=== PATIENT | male | born 1955 | race Caucasian/White ===

== ENCOUNTER 2019-09-16 12:36 | Observation (INO) | payer BC, OTHER ==
[2019-09-16] MEDS ORDERED: THIAMINE 200 MG/2 ML INJ ONE (13:48)
[2019-09-16] MEDS ORDERED: FAMOTIDINE 20 MG/2 ML VIAL IV ONE (13:49)
[2019-09-16] MEDS ORDERED: NA CHLORIDE 0.9% 100 ML IV ONE (13:49)
[2019-09-16] MEDS ORDERED: NA CHLORIDE 0.9% 1,000 ML ONE (13:50)
[2019-09-16] MEDS ORDERED: FOLIC ACID 5 MG/ML VIAL ONE (13:50)
[2019-09-16] MEDS ORDERED: LACTULOSE 20 GM/30 ML UCUP ONE (13:50)
--- NOTE | 2019-09-16 14:27 | RAD REPORT ---
EXAM DESCRIPTION: CT - Head Brain Wo Cont - 09/16/2019 2:20 pm CLINICAL HISTORY: Dizziness;Confused Headache, drowsiness COMPARISON: HEAD BRAIN W O CONTRAST dated 11/23/2007 TECHNIQUE: All CT scans are performed using dose optimization technique as appropriate and may inclu de automated exposure control or mA/KV adjustment according to patient size. FINDINGS: No intracranial hemorrhage, hydrocephalus or extra-axial fluid collection.No areas of brai n edema or evidence of midline shift. The paranasal sinuses and mastoids are clear. The calvarium is intact. IMPRESSION: No acute intracranial abnormality.
--- NOTE | 2019-09-16 14:28 | RAD REPORT ---
EXAM DESCRIPTION: US - Extrem Venous W Compress Tank - 09/16/2019 2:11 pm CLINICAL HISTORY: Pain;Swelling Bilateral leg edema and swelling. COMPARISON: EXT VENOUS W COMPRESSION TANK dated 04/24/2013 TECHNIQUE: Real-time sonographic interrogation of the left and right lower extremity deep venous sys tems was performed. FINDINGS: Normal compressibility, flow augmentation, phasic flow and spontaneous flow is identified in both the left and right lower extremity deep venous systems. IMPRESSION: No sonographic evidence of left or right lower extremity deep venous thrombosis.
--- NOTE | 2019-09-16 14:31 | RAD REPORT ---
EXAM DESCRIPTION: RAD - Chest Single View - 09/16/2019 2:25 pm CLINICAL HISTORY: Cough;Dyspnea;SOB Chest pain. COMPARISON: Chest Pa And Lat (2 Views) dated 06/08/2017; CHEST PA AND LAT 2 VIEW dated 04/01/2010 FINDINGS: Portable technique limits examination quality. The lungs are grossly clear. The heart is normal in size. Mildly tortuous thoracic aorta. No displace d fractures. IMPRESSION: No acute intrathoracic process suspected.
[2019-09-16 14:51] LABS: Absolute Lymphocytes (CBC) 1.1 K/uL (0.7-4.9); Basophils % 1.4 % (0-1.3); Hematocrit 40.5 % (39.6-49.0); Lymphocytes % 25.9 % (15.3-44.8); MPV 8.9 fL (7.6-11.3); RBC Red Blood Cell Count 4.19 M/uL (4.33-5.43)
[2019-09-16 14:59] LABS: Protime INR 1.2
[2019-09-16 15:09] LABS: ALT/SGPT 23 U/L (12-78); AST/SGOT 40 U/L (15-37); Albumin 3.5 g/dL (3.4-5.0); Alkaline Phosphatase 180 U/L (45-117); BUN Blood Urea Nitrogen 21 mg/dL (7-18); Bicarbonate 21 mmol/L (21-32); Bilirubin Direct 1.3 mg/dL (0-0.2); Bilirubin Total 3.1 mg/dL (0.2-1.0); Glucose Level 103 mg/dL (74-106); Lipase 448 U/L (73-393); Magnesium 2.2 mg/dL (1.8-2.4); NT PRO-BNP 248 pg/mL (<125); Potassium 4.4 mmol/L (3.5-5.1); Protein, Total 8.7 g/dL (6.4-8.2); Sodium Level 139 mmol/L (136-145); Troponin (Emerg Dept Use Only) < 0.02 ng/mL (0.0-0.045)
--- NOTE | 2019-09-16 15:34 | ER ---
Nurse's Notes [facility] Name: Marino Yielding Age: 64 yrs Sex: Male : 1955 Arrival Date: 09/16/2019 Time: 12:41 Bed 6 Private MD: Diagnosis: Altered mental status, unspecified;Edema, unspecified;Unspecified cirrhosis of liver;Dyspnea;Obesity, unspecified Presentation: 09/16 12:48 Presenting complaint: Friend states: "Over the last month, he has been very confused. ss it's getting worse and he hasn't slept in the past 3 nights. He has to sleep in his recliner. He said he has some shakes, and at times he says he has blurred vision and severe depression.". Transition of care: patient was not received from another setting of care. Onset of symptoms is unknown. Risk Assessment: Do you want to hurt yourself or someone else? Patient reports no desire to harm self or others. Initial Sepsis Screen: Does the patient meet any 2 criteria? RR > 20 per min. HR > 90 bpm. Does the patient have a suspected source of infection? No. Patient's initial sepsis screen is negative. Care prior to arrival: None. 12:48 Method Of Arrival: Ambulatory ss 12:48 Acuity: OLENA 2 ss Triage Assessment: 13:00 General: Appears in no apparent distress. comfortable, obese, Behavior is cooperative, bp anxious. Pain: Denies pain. EENT: No deficits noted. Neuro: Level of Consciousness is awake, alert, confused, Oriented to person, place. Cardiovascular: No deficits noted. Respiratory: Reports shortness of breath Onset: The symptoms/episode began/occurred at an unknown time. the patient has mild shortness of breath. GI: No signs and/or symptoms were reported involving the gastrointestinal system. : No signs and/or symptoms were reported regarding the genitourinary system. Derm: No deficits noted. Musculoskeletal: Swelling present in left leg and right leg. Historical: - Allergies: 12:54 Codeine; ss - Home Meds: 12:54 gabapentin 100 mg oral cap 3 times per day [Active]; lisinopril 40 mg Oral tab 1 tab ss once daily [Active]; furosemide 40 mg Oral tab 1 tab once daily [Active]; Vimovo 500-20 mg oral TbID 1 tab 2 times per day [Active]; hydrocodone [Active]; - PMHx: 12:54 Hypertension; CHF; lymphedema; Cirrhosis; ss - PSHx: 12:54 unknown testicular surgery; Knee surgery; ss - Immunization history:: Adult Immunizations unknown, Flu vaccine is up to date. - Social history:: Smoking status: Patient uses tobacco products, smokes one pack cigarettes per day. - Ebola Screening: : Patient denies exposure to infectious person Patient denies travel to an Ebola-affected area in the 21 days before illness onset. - Family history:: not pertinent. Screenin:24 Abuse screen: Denies threats or abuse. Denies injuries from another. Nutritional bp screening: No deficits noted. Tuberculosis screening: No symptoms or risk factors identified. Fall Risk None identified. Assessment: 13:00 General: SEE TRIAGE NOTE. bp 14:00 Reassessment: PT RETURNED FROM CT. bp 14:30 Cardiovascular: Rhythm is sinus rhythm. Respiratory: Airway is patent Respiratory bp effort is even, labored, Breath sounds are coarse bilaterally. 15:51 Reassessment: PT INCREASINGLY ANXIOUS, REFUSING TO STAY IN BED OR ALLOW VS MONITORING. bp MD INFORMED. 17:00 Reassessment: PT SEEN BY WOUND CARE PER ADMIT MD. ADMIT IN PROCESS. bp 17:24 Reassessment: ADMIT COMPLETE, ROOM ASSIGNED. bp 17:50 Reassessment: REPORT TO ANA LUISA MULLEN FOR 203. bp Vital Signs: 12:54 BP 138 / 68; Pulse 91; Resp 22; Temp 98.4(TE); Pulse Ox 91% on R/A; Weight 136.08 kg; ss Height 5 ft. 9 in. (175.26 cm); Pain 0/10; 13:07 Pulse 86; Pulse Ox 96% on R/A; ss 14:00 BP 130 / 57; Pulse 76; Resp 16; Pulse Ox 97% ; bp 14:48 BP 123 / 70; Pulse 80; Resp 17; Pulse Ox 98% ; bp 15:51 bp 17:30 BP 127 / 65; Pulse 79; Resp 16; Temp 98.5; Pulse Ox 97% ; bp 12:54 Body Mass Index 44.30 (136.08 kg, 175.26 cm) ss 15:51 PT REFUSED bp ED Course: 12:41 Patient arrived in ED. mr 12:50 Triage completed. ss 12:54 Arm band placed on left wrist. ss 13:20 Alberto Mccoy MD is Attending Physician. denita 13:24 Kendell Diane, PAZ is Primary Nurse. bp 13:24 Patient has correct armband on for positive identification. Bed in low position. Call bp light in reach. Side rails up X2. Adult w/ patient. 14:11 US Extremity Venous W Compression Tank In Process Unspecified. EDMS 14:21 CT Head Brain wo Cont In Process Unspecified. EDMS 14:26 XRAY Chest (1 view) In Process Unspecified. EDMS 14:30 Inserted saline lock: 20 gauge in right hand, using aseptic technique. Blood collected. bp 15:24 Hosea Colmenares MD is Hospitalizing Provider. denita 15:31 EKG done, by network technology instructor. reviewed by Alberto Mccoy MD. 3 17:24 No provider procedures requiring assistance completed. Patient admitted, IV remains in bp place. Administered Medications: 14:30 Drug: NS 0.9% 1000 ml Route: IV; Rate: 75 ml/hr; Site: right hand; bp 17:51 Follow up: IV Status: Infusion continued upon admission bp 14:30 Drug: Lactulose 30 grams Volume: 45 ml; Route: PO; bp 15:19 Follow up: Response: No adverse reaction bp 14:30 Drug: Thiamine 100 mg Route: IV; Rate: bolus; Site: right hand; bp 17:51 Follow up: IV Status: Completed infusion; IV Intake: 100ml bp 14:30 Drug: Pepcid 20 mg Route: IVP; Site: right hand; bp 15:19 Follow up: Response: No adverse reaction bp 14:30 Drug: foLIC Acid 1 mg Route: IVPB; Site: right hand; bp 17:51 Follow up: IV Status: Completed infusion bp 15:19 Drug: Lactulose 30 grams Volume: 45 ml; Route: PO; bp 15:47 Follow up: Response: No adverse reaction bp 15:47 Drug: Spironolactone 25 mg Route: PO; bp 17:51 Follow up: Response: No adverse reaction bp Intake: 17:51 IV: 100ml; Total: 100ml. bp Outcome: 15:33 Decision to Hospitalize by Provider. denita 17:24 Admitted to Med/surg accompanied by tech, via wheelchair, room 203, with chart, Report bp called to ANA LUISA MULLEN 17:24 Condition: stable 17:24 Instructed on the need for admit. 18:09 Patient left the ED. bp Signatures: Dispatcher [employer] EDAlberto Vicente MD MD cha Rivera, Ly mr Ellie Isaacs, RN RN ss Kendell Diane RN RN bp Vanessa Tao sm3 Corrections: (The following items were deleted from the chart) 14:48 14:45 BP 130 / 57; Pulse 76bpm; Resp 16bpm; Pulse Ox 97%; bp bp 17:49 17:24 Admitted to Med/surg accompanied by tech, via wheelchair, room 203, with chart, bpbp
--- NOTE | 2019-09-16 15:34 | EDPHYS ---
Physician Documentation [facility] Name: Marino Kim Age: 64 yrs Sex: Male : 1955 Arrival Date: 09/16/2019 Time: 12:41 Bed 6 Private MD: SERGEI Physician Alberto Mccoy HPI: 09/16 13:35 This 64 yrs old Male presents to ER via Ambulatory with complaints of denita Shortness Of Breath, Confusion. 13:35 The patient has shortness of breath at rest, with light activity. Onset: The denita symptoms/episode began/occurred 3 day(s) ago. Duration: The symptoms are continuous, and are steadily getting worse. The patient's shortness of breath has no apparent modifying factors. Associated signs and symptoms: The patient has no apparent associated signs or symptoms. Severity of symptoms: At their worst the symptoms were. The patient has not experienced similar symptoms in the past. Historical: - Allergies: 12:54 Codeine; ss - Home Meds: 12:54 gabapentin 100 mg oral cap 3 times per day [Active]; lisinopril 40 mg Oral tab 1 tab ss once daily [Active]; furosemide 40 mg Oral tab 1 tab once daily [Active]; Vimovo 500-20 mg oral TbID 1 tab 2 times per day [Active]; hydrocodone [Active]; - PMHx: 12:54 Hypertension; CHF; lymphedema; Cirrhosis; ss - PSHx: 12:54 unknown testicular surgery; Knee surgery; ss - Immunization history:: Adult Immunizations unknown, Flu vaccine is up to date. - Social history:: Smoking status: Patient uses tobacco products, smokes one pack cigarettes per day. - Ebola Screening: : Patient denies exposure to infectious person Patient denies travel to an Ebola-affected area in the 21 days before illness onset. - Family history:: not pertinent. ROS: 13:35 Constitutional: Negative for fever, chills, and weight loss, Eyes: Negative for injury, denita pain, redness, and discharge, ENT: Negative for injury, pain, and discharge, Neck: Negative for injury, pain, and swelling, Cardiovascular: Negative for chest pain, palpitations, and edema, Respiratory: Negative for shortness of breath, cough, wheezing, and pleuritic chest pain, Abdomen/GI: Negative for abdominal pain, nausea, vomiting, diarrhea, and constipation, Back: Negative for injury and pain, : Negative for injury, bleeding, discharge, and swelling, MS/Extremity: Negative for injury and deformity, Skin: Negative for injury, rash, and discoloration, Psych: Negative for depression, anxiety, suicide ideation, homicidal ideation, and hallucinations, Allergy/Immunology: Negative for hives, rash, and allergies, Endocrine: Negative for neck swelling, polydipsia, polyuria, polyphagia, and marked weight changes, Hematologic/Lymphatic: Negative for swollen nodes, abnormal bleeding, and unusual bruising. 13:35 Neuro: Positive for altered mental status, dizziness, weakness. Exam: 13:35 Constitutional: This is a well developed, well nourished patient who is awake, alert, denita and in no acute distress. Head/Face: Normocephalic, atraumatic. Eyes: Pupils equal round and reactive to light, extra-ocular motions intact. Lids and lashes normal. Conjunctiva and sclera are non-icteric and not injected. Cornea within normal limits. Periorbital areas with no swelling, redness, or edema. ENT: Nares patent. No nasal discharge, no septal abnormalities noted. Tympanic membranes are normal and external auditory canals are clear. Oropharynx with no redness, swelling, or masses, exudates, or evidence of obstruction, uvula midline. Mucous membranes moist. Neck: Trachea midline, no thyromegaly or masses palpated, and no cervical lymphadenopathy. Supple, full range of motion without nuchal rigidity, or vertebral point tenderness. No Meningismus. Chest/axilla: Normal chest wall appearance and motion. Nontender with no deformity. No lesions are appreciated. Cardiovascular: Regular rate and rhythm with a normal S1 and S2. No gallops, murmurs, or rubs. Normal PMI, no JVD. No pulse deficits. Respiratory: Lungs have equal breath sounds bilaterally, clear to auscultation and percussion. No rales, rhonchi or wheezes noted. No increased work of breathing, no retractions or nasal flaring. Abdomen/GI: Soft, non-tender, with normal bowel sounds. No distension or tympany. No guarding or rebound. No evidence of tenderness throughout. Back: No spinal tenderness. No costovertebral tenderness. Full range of motion. Male : Normal genitalia with no discharge or lesions. Skin: Warm, dry with normal turgor. Normal color with no rashes, no lesions, and no evidence of cellulitis. Psych: Awake, alert, with orientation to person, place and time. Behavior, mood, and affect are within normal limits. 13:35 Musculoskeletal/extremity: Extremities: pain, swelling, tenderness, ROM: limited active range of motion, limited passive range of motion, Circulation is intact in all extremities. Sensation intact. Compartment Syndrome exam of affected extremity: is normal. DVT Exam: negative Homans' sign noted on exam, no appreciated bluish discoloration, pain, swelling, tenderness, erythema, increased warmth, that is mild, of the right leg and left leg. Vital Signs: 12:54 BP 138 / 68; Pulse 91; Resp 22; Temp 98.4(TE); Pulse Ox 91% on R/A; Weight 136.08 kg; ss Height 5 ft. 9 in. (175.26 cm); Pain 0/10; 13:07 Pulse 86; Pulse Ox 96% on R/A; ss 14:00 BP 130 / 57; Pulse 76; Resp 16; Pulse Ox 97% ; bp 14:48 BP 123 / 70; Pulse 80; Resp 17; Pulse Ox 98% ; bp 15:51 bp 17:30 BP 127 / 65; Pulse 79; Resp 16; Temp 98.5; Pulse Ox 97% ; bp 12:54 Body Mass Index 44.30 (136.08 kg, 175.26 cm) ss 15:51 PT REFUSED bp MDM: 13:20 Patient medically screened. [facility] 13:39 Data reviewed: vital signs, nurses notes, lab test result(s), EKG, radiologic studies, [facility] CT scan, plain films. 09/16 13:33 Order name: Basic Metabolic Panel; Complete Time: 15:13 [facility] 09/16 13:33 Order name: CBC with Diff [facility] 09/16 13:33 Order name: LFT's; Complete Time: 15:13 denita 09/16 13:33 Order name: Magnesium; Complete Time: 15:13 denita 09/16 13:33 Order name: NT PRO-BNP; Complete Time: 15:13 denita 09/16 13:33 Order name: PT-INR; Complete Time: 16:32 [facility] 09/16 13:33 Order name: Troponin (emerg Dept Use Only); Complete Time: 15:13 denita 09/16 13:33 Order name: XRAY Chest (1 view); Complete Time: 14:38 [facility] 09/16 13:33 Order name: Lipase; Complete Time: 15:13 [facility] 09/16 13:33 Order name: US Extremity Venous W Compression Tank; Complete Time: 14:38 [facility] 09/16 13:33 Order name: AMMONIA; Complete Time: 15:04 [facility] 09/16 13:33 Order name: CT Head Brain wo Cont; Complete Time: 14:38 [facility] 09/16 13:33 Order name: EKG; Complete Time: 13:34 [facility] 09/16 13:33 Order name: Cardiac monitoring; Complete Time: 14:00 [facility] 09/16 13:33 Order name: EKG - Nurse/Tech; Complete Time: 14:40 [facility] 09/16 13:33 Order name: IV Saline Lock; Complete Time: 14:41 [facility] 09/16 13:33 Order name: Labs collected and sent; Complete Time: 14:41 [facility] 09/16 13:33 Order name: O2 Per Protocol; Complete Time: 14:00 [facility] 09/16 13:33 Order name: O2 Sat Monitoring; Complete Time: 14:00 [facility] Administered Medications: 14:30 Drug: NS 0.9% 1000 ml Route: IV; Rate: 75 ml/hr; Site: right hand; bp 17:51 Follow up: IV Status: Infusion continued upon admission bp 14:30 Drug: Lactulose 30 grams Volume: 45 ml; Route: PO; bp 15:19 Follow up: Response: No adverse reaction bp 14:30 Drug: Thiamine 100 mg Route: IV; Rate: bolus; Site: right hand; bp 17:51 Follow up: IV Status: Completed infusion; IV Intake: 100ml bp 14:30 Drug: Pepcid 20 mg Route: IVP; Site: right hand; bp 15:19 Follow up: Response: No adverse reaction bp 14:30 Drug: foLIC Acid 1 mg Route: IVPB; Site: right hand; bp 17:51 Follow up: IV Status: Completed infusion bp 15:19 Drug: Lactulose 30 grams Volume: 45 ml; Route: PO; bp 15:47 Follow up: Response: No adverse reaction bp 15:47 Drug: Spironolactone 25 mg Route: PO; bp 17:51 Follow up: Response: No adverse reaction bp Disposition: 09/16/19 15:33 Hospitalization ordered by Hosea Colmenares for Inpatient Admission. Preliminary diagnosis are Altered mental status, unspecified, Edema, unspecified, Unspecified cirrhosis of liver, Dyspnea, Obesity, unspecified. - Bed requested for Telemetry/MedSurg (Inpatient). - Status is Inpatient Admission. bp - Condition is Fair. - Problem is new. - Symptoms have improved. UTI on Admission? No Signatures: Dispatcher [employer] EDMS BridgetteBritney rivera Alberto Leon MD MD cha Smirch, Shelby, RN RN Kendell Diane RN RN bp Corrections: (The following items were deleted from the chart) 17:15 15:33 Hospitalization Ordered by Hosea Colmenares MD for Inpatient Admission. Preliminary bd diagnosis is Altered mental status, unspecified; Edema, unspecified; Unspecified cirrhosis of liver; Dyspnea; Obesity, unspecified. Bed requested for Telemetry/MedSurg (Inpatient). Status is Inpatient Admission. Condition is Fair. Problem is new. Symptoms have improved. UTI on Admission? No. denita 18:09 17:15 09/16/2019 15:33 Hospitalization Ordered by Hosea Colmenares MD for Inpatient bp Admission. Preliminary diagnosis is Altered mental status, unspecified; Edema, unspecified; Unspecified cirrhosis of liver; Dyspnea; Obesity, unspecified. Bed requested for Telemetry/MedSurg (Inpatient). Status is Inpatient Admission. Condition is Fair. Problem is new. Symptoms have improved. UTI on Admission? No. bd
--- NOTE | 2019-09-16 15:53 | EKG ---
Test Date: 2019-09-16 Test Time: 15:23:17 Procurement Specialist: OSMIN MEASUREMENT RESULTS: Intervals: Rate: 79 W[place]: 148 QRSD: 132 QT: 426 QTc: 488 [place]: P: 61 WY: 148 QRS: 95 T: 44 INTERPRETIVE STATEMENTS: Normal sinus rhythm Right bundle branch block Abnormal ECG No previous ECG available for comparison Electronically Signed On 09-16-19 15:53:22 CDT by Nash Lamb
[2019-09-16] MEDS ORDERED: SPIRONOLACTONE 25 MG TABLET PO ONE (16:00)
[2019-09-16] MEDS ORDERED: ONDANSETRON 4 MG/2 ML VIAL IV PRN (18:03)
[2019-09-16 18:21] VITALS: BMI 46.8
[2019-09-16] MEDS: LACTULOSE 20 GM/30 ML UCUP PO SCH (20:31)
[2019-09-16] MEDS ORDERED: TRAMADOL HCL 50 MG TAB PO PRN (20:39)
[2019-09-16] MEDS ORDERED: HYDROCODONE/APAP 7.5/325 MG TAB PO PRN (20:40)
[2019-09-16] MEDS: GABAPENTIN 100 MG CAP PO SCH (21:54)
[2019-09-16 22:40] LABS: Blood Morphology Comment NOT SEEN (NOT SEEN); Platelet Estimate DECR; Urine White Blood Cell Casts OK
[2019-09-17 02:38] LABS: Urine Appearance CLEAR; Urine Bilirubin NEGATIVE (NEG); Urine Blood NEGATIVE (NEG); Urine Color YELLOW; Urine Glucose NEGATIVE (NEG); Urine Protein NEGATIVE (NEG); Urine pH 5.5 (5.0-7.0)
[2019-09-17 03:31] LABS: Urine Bacteria <20 /HPF (NONE SEEN); Urine Culture Reflex Order NOT NEEDED; Urine RBC <5 /HPF (NONE SEEN)
--- NOTE | 2019-09-17 03:35 | HP ---
Date of Admission: 09/16/2019 Chief Complaint: Altered mental status. Primary Care Physician: Out of town. History Of Present Illness: The patient is a 64-year-old male with past medical history of hypertens ion, congestive heart failure, liver cirrhosis, who recently had knee surgery 2 months ago, comes in with altered mental status. Patient lives alone. He states that he is confused, was not able to ope rate his TV remote, could not get his phone to work, therefore became concerned. He also reports ruy e shortness of breath, however, that is mainly chronic. Otherwise, denies any fevers, chills. Did h ave some nausea, but no vomiting. No constipation or diarrhea. Patient does appear to be somewhat c onfused, unable to fill in details. History is supplemented by previous records, ER physician. is no longer present at the bedside. The patient's symptoms are constant, moderate, progressively w orsening. His workup revealed normal white blood cell count. Ammonia level was slightly elevated at 68. Head CT scan was negative. Patient was then referred for admission. When seen in the ER, he w as awake, alert, oriented x3, however, was slow to respond, appear lethargic and confused. Past Medical History: Hypertension; congestive heart failure, cirrhosis. Past Surgical History: Testicular surgery, knee surgery on July 15 on the left side. Allergies: CODEINE. Medications: List reviewed. Social History: Patient smokes 1 pack per day of cigarettes. Denies any significant alcohol use or illicit drug use. Patient lives alone, independent in his activities of daily living. Family History: No premature history of coronary artery disease. Review of Systems: Limited due to patient's medical condition, however, 10 point systems reviewed, negative except as pe r HPI. Physical Examination: VITAL SIGNS: Temperature 98.4, respirations 22, heart rate 91, blood pressure 138/68, O2 at 91% on r oom air, BMI is 44. GENERAL: Awake, alert, oriented x3, somewhat lethargic, confused male, morbidly obese. HEENT: Normocephalic, atraumatic. PERRLA. EOMI. Moist mucous membranes. Oropharynx is clear. Po or dentition. Conjunctivae are slightly icteric. NECK: Supple. Trachea midline. CVS: S1, S2. Regular rate and rhythm. Peripheral pulses present. RESPIRATORY: Moving air well bilaterally. No wheezing or stridor. No use of accessory muscles. GASTROINTESTINAL: Abdomen is soft, nondistended, nontender. Positive bowel sounds. No guarding or rigidity. No ascites. EXTREMITIES: No clubbing or cyanosis. Patient has diffuse lower extremity edema bilaterally. No ca lf tenderness. NEURO: Cranial nerves 2 through 12 intact grossly. No focal neurological deficit. Speech is normal . SKIN: The patient has chronic venous stasis ulcerations of bilateral lower extremities with some abr asions. No rashes. Laboratory Data: Sodium 139, potassium 4.4, chloride 112, CO2 of 21, BUN 21, creatinine 0.9, glucose 103, calcium 9.6, magnesium 2.2, total bilirubin 3.1, direct bilirubin 1.3, AST 40, ALT 23, alkaline phosphatase 180, ammonia 68. Troponin less than 0.02. Albumin 3.5, lipase 448. INR 1.20. WBC 4.4 , H and H 14.1 and 40.5, platelets 94. Imaging Studies: Head CT scan was negative for any acute intracranial abnormality. Doppler sonogram bilateral lower extremity shows no sonographic evidence of left or right lower extremity DVT. Chest x-ray shows no acute intrathoracic process suspected. EKG shows normal sinus rhythm, right bundle b ranch block, rate of 79. No previous EKG for comparison. Assessment And Plan: A 64-year-old male with: 1.Acute hepatic encephalopathy. Ammonia level slightly elevated. Patient received lactulose in the ER. We will continue with lactulose. Monitor ammonia level. 2.Thrombocytopenia, likely related to liver cirrhosis. 3.Liver cirrhosis. No acute ascites. We will continue with diuretics. Place on fluid restriction and weight daily. 4.Possible acute pancreatitis. Lipase level is elevated at 448. No clinical signs. We will contin ue to monitor and obtain CT abdomen if worsening. 5.Essential hypertension. We will resume home medications as appropriate. 6.History of congestive heart failure, chronic, unknown ejection fraction, likely diastolic dysfunct ion. 7.Right bundle-branch block. 8.Recent knee surgery. No deep vein thrombosis on Doppler sono. Incision site looks clean, dry, an d intact. 9.Chronic venous stasis ulcerations. [facility] consultation. Plan: 1.Admit patient to Med-Surg, [facility] as observation. 2.Deep vein thrombosis prophylaxis, SCDs. No chemical anticoagulation due to thrombocytopenia. SA/TREY Voice ID: [id number]
[2019-09-17 05:44] LABS: Albumin 3.2 g/dL (3.4-5.0); Bilirubin Total 2.8 mg/dL (0.2-1.0); Potassium 3.9 mmol/L (3.5-5.1)
[2019-09-17 05:56] LABS: Absolute Lymphocytes (CBC) 1.3 K/uL (0.7-4.9); Basophils % 2.1 % (0-1.3); Hematocrit 37.9 % (39.6-49.0); Lymphocytes % 31.4 % (15.3-44.8); MPV 8.8 fL (7.6-11.3); RBC Red Blood Cell Count 3.94 M/uL (4.33-5.43)
[2019-09-17] MEDS: GABAPENTIN 100 MG CAP PO SCH (08:18)
[2019-09-17] MEDS: LACTULOSE 20 GM/30 ML UCUP PO SCH (08:21)
[2019-09-17 08:37] VITALS: O2SAT 94
[2019-09-17] MEDS ORDERED: POTASSIUM CL SA 10 MEQ TAB PO ONE (09:00)
[2019-09-17] MEDS ORDERED: FUROSEMIDE 40 MG TABLET PO SCH (09:00)
[2019-09-17] MEDS ORDERED: LISINOPRIL 20 MG TAB PO SCH (09:00)
[2019-09-17 13:57] VITALS: BP 133/60; TEMP 97.5
--- NOTE | 2019-09-18 05:18 | DS ---
Date of Discharge: 09/17/2019 Consultants: Dr. Blackburn, with Psychiatry. Discharge Diagnoses: 1.Acute hepatic encephalopathy, resolved. 2.Thrombocytopenia related to liver cirrhosis, stable. 3.Liver cirrhosis without any ascites, no hepatic coma. 4.Elevated lipase, no signs or symptoms of acute pancreatitis. 5.Essential hypertension, stable. 6.History of congestive heart failure, chronic unknown ejection fraction likely diastolic dysfunctio n, stable. 7.Right bundle-branch block. 8.Recent left knee surgery. 9.Chronic venous stasis ulceration, stable. Hospital Course: Patient is a 64-year-old male with past medical history of hypertension, CHF, liver cirrhosis, came in with confusion. Patient was found to have hepatic encephalopathy with elevated l evel of ammonia. No other sources of infection were found including in the urine and chest x-ray was also clear, did not have any signs of spontaneous bacterial peritonitis. Patient had venous Doppler study done in the ER to rule out DVT of his lower extremities due to recent knee surgery and the pat ient has chronic venous stasis changes of his lower extremities. The patient did well. Overall, he was started on lactulose. His ammonia level came down slightly to 66, which is essentially near the normal range. He did have isolated elevated level of lipase, however there were no signs or symptoms of pancreatitis. Patient was able to tolerate his diet. He was able to ambulate without difficulty . His head CT scan was also negative for any acute changes. Patient was then cleared for discharge. He did complain of some insomnia as well as anxiety. Psychiatry was consulted. Patient was then d ischarged home in a stable condition. Activity: As tolerated. Medications: As per medication reconciliation list. Diet: Low-sodium, 1500 mL fluid restriction. Followup: Follow up with primary care physician in 2-3 days. Follow up with psychiatrist, Dr. Cece perez in 1-2 weeks. Return to ER for worsening condition. Medications: As per medication reconciliation list. Physical Examination: General: Awake, alert, oriented x3. Morbidly obese male. CV: S1, S2. Respiratory: Moving air well bilaterally. Abdomen: Abdomen is soft, nontender, nondistended. Positive bowel sounds. Extremities: No clubbing, cyanosis. Patient has bilateral lower extremity edema. Skin: Chronic venous stasis ulcerations. Patient also recommended [facility]. /TREY Voice ID: [id number] Report ID: [id number]
--- NOTE | 2019-09-18 08:29 | CON ---
SUBJECTIVE: History Of Present Illness: Patient was admitted to the unit on September 13, 2019 for acute hepatic encephalopathy. Psychiatry is consulted to evaluate and recommend treat on account of worsening anxiety and insomnia. On evaluation, Mr. Julio Pichardo is a 64-year-old male, treated for altered mental status secondary to hepatic encephalopathy. Patient also has history significant for hypertension and LORENZO on CPAP. On interview, patient was met lying in bed in his room sleeping with is CPAP machine on. Patient is arousable but reluctant to provide history. He however endorsed anxiety symptoms Such worrying excessively about being in the hospital with no associate history of panic attacks. Patient admits to past history of depression, but not currently depressed, no suicidal or homicidal ideation. No history of self-injurious behavior. Admits to history of alcohol abuse, but refuse to provide further details about his drinking pattern. No history of substance abuse. States he lives alone since been from . States he has children but are grown up and living with their families. Denies psychotic symptoms. No history of bipolar disorder. States he does have difficulty initiating sleep as result of anxiety. No past psychiatric hospitalization. No history of past suicidal attempts. Patient is currently on gabapentin 100 mg p.o. t.i.d., otherwise not on any other psychotropic medications. OBJECTIVE: Physical Examination: Vital Signs: Blood pressure 106/68, pulse is 72, O2 saturation is 95, respirations 20. Mental Status Examination: Patient is an obese male, met lying in bed. Have a CPAP machine on. Patient is superficially cooperative. Slightly disoriented, otherwise he is oriented to name and place, but not to date. No stereotypic movement noticed, mild psychomotor retardation observed. His speech is spontaneous, with mild prolonged speech latency. Mood, he described as anxious. Affect is mood congruent but restricted Thought content, no delusional thinking. No suicidal or homicidal ideation. PD : no auditory or visual hallucination. Fund of knowledge limited. Language fair. Assessment: A 64-year-old male, admitted with delirium 2nd to hepatic encephalopathy, also complaint significant anxiety and insomnia with no history of panic attack. Diagnoses: 1. Anxiety disorder unspecified 2. Insomnia, chronic. Recommendations: Start patient on Remeron 15 mg p.o. q.h.s. For anxiety and insomnia. Recommend patient to follow up with Psychiatry in 2 weeks post-discharge by primary team, for further evaluation and medication management. Thank you for the consult ASHWIN Voice ID: [id number] Report ID: [id number] MTDFabio
--- OUTSIDE RECORDS SUMMARY | 2019-09-27 16:54 | XMS REPORT ---
:1955 Author [facility] Address [address] [place] [address] Care Team Providers Name Role Phone Unavailable Unavailable Unavailable Payers Payer Name Policy Type Policy Number Effective Date Expiration Date Problems This patient has no known problems. Allergies, Adverse Reactions, Alerts Allergy Name Allergy Status Severity Reaction(s) Onset Inactive Treating Comments Type Date Date Clinician Penicillins DA Active RI 2019-06 00:00:0 0 codeine DA Active RI 2019-06 00:00:0 0 Penicillins DA Active RI 2016-02 00:00:0 0 codeine DA Active RI 2016-02 00:00:0 0 Medications This patient has no known medications. Results Test Description Test Time Test Comments Text Results Atomic Results Result Comments BASIC METABOLIC PANEL 2019-07-16 06:32:00 Test Item Value Reference Range Comments SODIUM (test code=NA) 137 mmol/L 136-145 POTASSIUM (test code=K) 4.5 mmol/L 3.5-5.1 CHLORIDE (test code=CL) 105.0 mmol/L 98-107 CARBON DIOXIDE (test code=CO2) 22.3 mmol/L 21-32 GLUCOSE (test code=GLU) 118 mg/dL 70-110 BLOOD UREA NITROGEN (test 25 mg/dL 7-18 code=BUN) GLOMERULAR FILTRATION RATE (test 64.4 >60 Unit of measure: mL/min/1.73 code=GFR) [id number] Range:Healthy Adults >90 mL/min/1.73 m2 For Chronic Kidney Disease: Stage II Mild Decrease in GFR 60-90 Stage III Moderate Decrease in GFR 30-59 Stage IV Severe Decrease in GFR 15-29 Stage V Kidney Failure <15 CREATININE (test code=CREAT) 1.15 mg/dL 0.55-1.30 CALCIUM (test code=CA) 8.3 mg/dL 8.2-10.1 HGB [id number] 05:53:00 Test Item Value Reference Range Comments HEMOGLOBIN (test code=HGB) 12.4 g/dL 12-16 HEMATOCRIT (test code=HCT) 37.5 % 37-47 COMPREHENSIVE METABOLIC [id number] 12:43:00 Test Item Value Reference Range Comments SODIUM (test code=NA) 137 mmol/L 136-145 POTASSIUM (test code=K) 4.2 mmol/L 3.5-5.1 CHLORIDE (test code=CL) 104.0 mmol/L 98-107 CARBON DIOXIDE (test code=CO2) 24.5 mmol/L 21-32 GLUCOSE (test code=GLU) 115 mg/dL 70-110 BLOOD UREA NITROGEN (test 17 mg/dL 7-18 code=BUN) GLOMERULAR FILTRATION RATE 93.9 >60 Unit of measure: (test code=GFR) mL/min/1.73 [id number] Range:Healthy Adults >90 mL/min/1.73 m2 For Chronic Kidney Disease: Stage II Mild Decrease in GFR 60-90 Stage III Moderate Decrease in GFR 30-59 Stage IV Severe Decrease in GFR 15-29 Stage V Kidney Failure <15 CREATININE (test code=CREAT) 0.83 mg/dL 0.55-1.30 TOTAL PROTEIN (test code=PROT) 7.9 g/dL 6.4-8.2 ALBUMIN (test code=ALB) 3.1 g/dL 3.4-5.0 GLOBULIN (test code=GLOB) 4.8 g/dL 2.2-4.2 ALBUMIN/GLOBULIN RATIO (test 0.7 0.7-2.0 code=A/G) CALCIUM (test code=CA) 8.9 mg/dL 8.2-10.1 BILIRUBIN TOTAL (test 2.74 mg/dL 0.2-1.00 code=BILT) SGOT/AST (test code=AST) 54.0 U/L 15-37 SGPT/ALT (test code=ALT) 34.0 U/L 12-78 Please note new normal range. ALKALINE PHOSPHATASE TOTAL 153 U/L 46-116 (test code=ALKP) PROTHROMBIN [id number] 12:35:00 Test Item Value Reference Range Comments PROTHROMBIN TIME PATIENT 14.4 secs 10.1-12.5 (test code=PTP) INTERNATIONAL NORMAL RATIO 1.27 <2.0 RECOMMENDED THERAPEUTIC RANGE (test code=INR) FOR ORAL ANTICOAGULANTTREATMENT: CONDITION INRProphylaxis of venous thrombosis in 2.0 - 3.0 high-risk medical or surgical patientsTreatment of venous thrombosis 2.0 - 3.0Prevention of embolism 2.0 - 3.0Prevention of recurrent embolism, or 3.0 - 4.5 patients with mechanical prosthetic intravascular valves IS PATIENT ON ANTICOAGULANTS ? NHas Lab been notified if Patient is on Heparin Drip? NOTHROMBOPLASTIN TIME [id number] 12:35:00 Test Item Value Reference Range Comments PTT ACTIVATED (test code=APTT) 35.6 secs 24.9-37.0 IS PATIENT ON ANTICOAGULANTS ? NHas Lab been notified if Patient is on Heparin Drip? NOCBC W/AUTO [id number] 12:30:00 Test Item Value Reference Range Comments WHITE BLOOD CELL (test 4.8 K/mm3 5.7-10.5 code=WBC) RED BLOOD CELL (test code=RBC) 4.10 M/mm3 4.2-5.4 HEMOGLOBIN (test code=HGB) 13.6 g/dL 12-16 HEMATOCRIT (test code=HCT) 39.9 % 37-47 MEAN CELL VOLUME (test 97 fL 80-98 code=MCV) MEAN CELL HGB (test code=MCH) 33.2 pg 27-34 MEAN CELL HGB CONCENTRATION 34.1 g/dL 30.8-34.1 (test code=MCHC) RED CELL DISTRIBUTION WIDTH 16.8 % 11-16 (test code=RDW) PLT (test code=PLT) 90 K/mm3 130-400 DECREASED ON SMEARGIANT PLATELETS NOTED...MAV MEAN PLATELET VOLUME (test 10.5 fL 8.9-12.1 code=MPV) NEUTROPHIL % (test code=NT%) 56.0 % 45-70 LYMPHOCYTE % (test code=LY%) 26.2 % 20-40 MONOCYTE % (test code=MO%) 14.0 % 3-10 EOSINOPHIL % (test code=EO%) 2.1 % 1-5 BASOPHIL % (test code=BA%) 1.3 % 0.0-1.1 NEUTROPHIL # (test code=NT#) 2.67 K/mm3 2.00-7.50 LYMPHOCYTE # (test code=LY#) 1.25 K/mm3 1.50-4.00 MONOCYTE # (test code=MO#) 0.67 K/mm3 0.2-0.8 EOSINOPHIL # (test code=EO#) 0.10 K/mm3 0.04-0.4 BASOPHIL # (test code=BA#) 0.06 K/mm3 0.02-0.10 MANUAL DIFF REQUIRED (test NO MANUAL DIFF code=MDIFF) NUCLEATED RED BLOOD CELL (test 0 % 0-0 code=NRBC) URINALYSIS [id number] 12:25:00 Test Item Value Reference Range Comments UA COLOR (test code=COLU) YELLOW YELLOW UA APPEARANCE (test code=APPU) SL CLOUDY CLEAR UA GLUCOSE DIPSTICK (test code=DGLUU) NEGATIVE NEGATIVE UA BILIRUBIN DIPSTICK (test code=BILU) NEGATIVE NEGATIVE UA KETONE DIPSTICK (test code=KETU) NEGATIVE mg/dL NEGATIVE UA SPECIFIC GRAVITY (test code=SGU) 1.010 1.003-1.035 UA BLOOD DIPSTICK (test code=ANGÉLICA) NEGATIVE NEGATIVE UA PH DIPSTICK (test code=TRISH) 7.0 >6.5 UA PROTEIN DIPSTICK (test code=PROU) NEGATIVE mg/dL NEG UA UROBILINIOGEN DIPSTICK (test code=URO) 2.0 mg/dL NORM UA NITRITE DIPSTICK (test code=VINCE) NEGATIVE NEG UA LEUKOCYTE ESTERASE DIPSTICK (test NEGATIVE NEGATIVE code=LEUU) UA WBC (test code=WBCU) NONE SEEN /HPF 0-2 UA RBC (test code=RBCU) NONE SEEN /HPF 0-2 UA EPITHELIAL CELLS (test code=EPIU) 2-5 /HPF 0-2 UA BACTERIA (test code=BACU) RARE /HPF NONE AB [id number] 16:25:00 Test Item Value Reference Range Comments AB HIV 1 (test code=HIV1AB) NONREACTIVE NONREACTIVE Done by [employer] 4th Gen HIV Ag/Ab Combo Screen AB HIV 1 16:24:00 Test Item Value Reference Range Comments AB HIV 1 2 (test NONREACTIVE NONREACTIVE Done by [employer] MacuCLEARaur 4th code=CAQ15ZP) Gen HIV Ag/Ab Combo Screen CBC W/AUTO [id number] 14:36:00 Test Item Value Reference Range Comments WHITE BLOOD CELL (test 5.4 K/mm3 5.7-10.5 code=WBC) RED BLOOD CELL (test code=RBC) 4.31 M/mm3 4.2-5.4 HEMOGLOBIN (test code=HGB) 14.2 g/dL 12-16 HEMATOCRIT (test code=HCT) 42.1 % 37-47 MEAN CELL VOLUME (test 98 fL 80-98 code=MCV) MEAN CELL HGB (test code=MCH) 32.9 pg 27-34 MEAN CELL HGB CONCENTRATION 33.7 g/dL 30.8-34.1 (test code=MCHC) RED CELL DISTRIBUTION WIDTH 16.2 % 11-16 (test code=RDW) PLT (test code=PLT) 85 K/mm3 130-400 PLT ESTIMATE FROM SLIDE REVIEW: SLIGHTLY DECREASEDFEW LARGE PLTS PRESENT MEAN PLATELET VOLUME (test 11.3 fL 8.9-12.1 code=MPV) NEUTROPHIL % (test code=NT%) 63.2 % 45-70 LYMPHOCYTE % (test code=LY%) 20.0 % 20-40 MONOCYTE % (test code=MO%) 12.9 % 3-10 EOSINOPHIL % (test code=EO%) 2.2 % 1-5 BASOPHIL % (test code=BA%) 1.1 % 0.0-1.1 NEUTROPHIL # (test code=NT#) 3.42 K/mm3 2.00-7.50 LYMPHOCYTE # (test code=LY#) 1.08 K/mm3 1.50-4.00 MONOCYTE # (test code=MO#) 0.70 K/mm3 0.2-0.8 EOSINOPHIL # (test code=EO#) 0.12 K/mm3 0.04-0.4 BASOPHIL # (test code=BA#) 0.06 K/mm3 0.02-0.10 MANUAL DIFF REQUIRED (test NO MANUAL DIFF code=MDIFF) NUCLEATED RED BLOOD CELL (test 0 % 0-0 code=NRBC) COMPREHENSIVE METABOLIC [id number] 14:36:00 Test Item Value Reference Range Comments SODIUM (test code=NA) 136 mmol/L 136-145 POTASSIUM (test code=K) 4.3 mmol/L 3.5-5.1 CHLORIDE (test code=CL) 102.0 mmol/L 98-107 CARBON DIOXIDE (test code=CO2) 23.2 mmol/L 21-32 GLUCOSE (test code=GLU) 104 mg/dL 70-110 BLOOD UREA NITROGEN (test 21 mg/dL 7-18 code=BUN) GLOMERULAR FILTRATION RATE 70.8 >60 Unit of measure: (test code=GFR) mL/min/1.73 [id number] Range:Healthy Adults >90 mL/min/1.73 m2 For Chronic Kidney Disease: Stage II Mild Decrease in GFR 60-90 Stage III Moderate Decrease in GFR 30-59 Stage IV Severe Decrease in GFR 15-29 Stage V Kidney Failure <15 CREATININE (test code=CREAT) 1.06 mg/dL 0.55-1.30 TOTAL PROTEIN (test code=PROT) 8.2 g/dL 6.4-8.2 ALBUMIN (test code=ALB) 3.3 g/dL 3.4-5.0 GLOBULIN (test code=GLOB) 4.9 g/dL 2.2-4.2 ALBUMIN/GLOBULIN RATIO (test 0.7 0.7-2.0 code=A/G) CALCIUM (test code=CA) 9.0 mg/dL 8.2-10.1 BILIRUBIN TOTAL (test 2.54 mg/dL 0.2-1.00 code=BILT) SGOT/AST (test code=AST) 44.0 U/L 15-37 SGPT/ALT (test code=ALT) 31.0 U/L 12-78 Please note new normal range. ALKALINE PHOSPHATASE TOTAL 158 U/L 46-116 (test code=ALKP) PROTHROMBIN [id number] 14:17:00 Test Item Value Reference Range Comments PROTHROMBIN TIME PATIENT 14.9 secs 10.1-12.5 (test code=PTP) INTERNATIONAL NORMAL RATIO 1.32 <2.0 RECOMMENDED THERAPEUTIC RANGE (test code=INR) FOR ORAL ANTICOAGULANTTREATMENT: CONDITION INRProphylaxis of venous thrombosis in 2.0 - 3.0 high-risk medical or surgical patientsTreatment of venous thrombosis 2.0 - 3.0Prevention of embolism 2.0 - 3.0Prevention of recurrent embolism, or 3.0 - 4.5 patients with mechanical prosthetic intravascular valves IS PATIENT ON ANTICOAGULANTS ? YLIST ANTICOAGULANT/ANTI PLT MEDICATION : AspirinHas Lab been notified if Patient is on Heparin Drip? NOTHROMBOPLASTIN TIME [id number] 14:17:00 Test Item Value Reference Range Comments PTT ACTIVATED (test code=APTT) 35.6 secs 24.9-37.0 IS PATIENT ON ANTICOAGULANTS ? YLIST ANTICOAGULANT/ANTI PLT MEDICATION : AspirinHas Lab been notified if Patient is on Heparin Drip? NOURINALYSIS [id number] 14:12:00 Test Item Value Reference Range Comments UA COLOR (test code=COLU) YELLOW YELLOW UA APPEARANCE (test code=APPU) CLEAR CLEAR UA GLUCOSE DIPSTICK (test code=DGLUU) NEGATIVE NEGATIVE UA BILIRUBIN DIPSTICK (test code=BILU) NEGATIVE NEGATIVE UA KETONE DIPSTICK (test code=KETU) NEGATIVE mg/dL NEGATIVE UA SPECIFIC GRAVITY (test code=SGU) 1.010 1.003-1.035 UA BLOOD DIPSTICK (test code=ANGÉLICA) NEGATIVE NEGATIVE UA PH DIPSTICK (test code=TRISH) 7.0 >6.5 UA PROTEIN DIPSTICK (test code=PROU) NEGATIVE mg/dL NEG UA UROBILINIOGEN DIPSTICK (test code=URO) 0.2 mg/dL NORM UA NITRITE DIPSTICK (test code=VINCE) NEGATIVE NEG UA LEUKOCYTE ESTERASE DIPSTICK (test TRACE NEGATIVE code=LEUU) UA WBC (test code=WBCU) <5 /HPF 0-2 UA RBC (test code=RBCU) 0-2 /HPF 0-2 UA EPITHELIAL CELLS (test code=EPIU) FEW /HPF 0-2 UA BACTERIA (test code=BACU) FEW /HPF NONE
--- OUTSIDE RECORDS SUMMARY | 2019-09-27 16:54 | XMS REPORT | Summary of Care ---
:1955 Author Organization [facility] Address [address] [place] [address] Care Team Providers Name Role Phone Sidney Clarke MD Primary Care Provider Reason for Referral (Routine) Status Reason Specialty Diagnoses / Procedures Referred By Referred To Contact Contact Closed Cardiology Diagnoses Preop cardiovascular exam Abnormal EKG Maria Luisa Tamayo MD Procedures ECHO ROUTINE W/DOPPLER COLOR Preferred Location: [facility] [address] [place] [address] Reason for Visit Auth/Cert Status Reason Specialty Diagnoses / Procedures Referred By Referred To Contact Contact Echocardiograph Diagnoses Encounter for preprocedural cardiovascular examination Z01.810 [facility] Echo Cardio Procedures [place] CV STRS TST XERS&/OR RX CONT ECG W/O I&R [place] CARDIAC STRESS TST,TRACING ONLY [place] CARDIAC STRESS TST,INTERP/REPT ONLY Lab-Pt [address] [facility] [place] [address] Encounter Details Date Type Department Care Team Description 06/23/2019 Laboratory Only [facility] Maria Luisa Tamayo MD [address] [place] [address] Preop cardiovascular exam; Cardiology- Tech, Adc Cardio Fac Abnormal EKG [place] [id number], Adc Cardio Fac Room [address] [facility], [address] [place] [address] Allergies Active Allergy Reactions Severity Noted Date Comments Codeine Unknown - See comments 02/24/2016 Patient walked into clinic with SOB, and trouble breathing/speaking Penicillins Unknown - See comments 02/24/2016 Patient walk in clinic SOB/trouble breathing/speaking documented as of this encounter (statuses as of 06/24/2019) Medications Medication Sig Dispensed Refills Start Date End Date Status metoprolol succinate XL 50 Take 1 tablet 30 tablet 12 09/20/2017 Active mg 24 hr by mouth tabletIndications: daily. Essential hypertension AMLODIPINE 5 mg TAKE 1 TABLET 30 tablet 0 08/12/2018 Active tabletIndications: BY MOUTH Essential hypertension DAILY hydroCHLOROthiazide 25 mg Take 1 tablet 30 tablet 5 11/25/2018 Active tabletIndications: by mouth Essential hypertension daily. triamcinolone acetonide Apply to 80 g 1 11/28/2018 Active 0.1 % creamIndications: area(s) 2 Rash (two) times daily. lisinopril 40 mg Take 1 tablet 30 tablet 12 12/31/2018 Active tabletIndications: by mouth Essential hypertension daily. gabapentin 100 mg Take 1 90 capsule 12 12/31/2018 Active capsuleIndications: RLS capsule by (restless legs syndrome) mouth 3 (three) times daily. furosemide 40 mg Take 1 tablet 30 tablet 12 12/31/2018 Active tabletIndications: Edema, by mouth unspecified type daily. albuterol 90 mcg/actuation Inhale 2 8.5 g 0 06/03/2019 Active inhalerIndications: Puffs every 6 Wheezing (six) hours as needed for Wheezing. Hospital, Clinic, or Other Ordered Dose Route Frequency Start Date End Date Status Facility Administered Medication sulfur hexafluoride 5 mL IV ONCE 06/23/2019 06/23/2019 Ended microsphr (LUMASON) injection 5 mL documented as of this encounter (statuses as of 06/24/2019) Active Problems Problem Noted Date Asbestosis 05/16/2018 Cirrhosis of liver without ascites 03/26/2016 Essential hypertension 11/25/2015 Sleep apnea, obstructive 11/25/2015 documented as of this encounter (statuses as of 06/24/2019) Immunizations Name Administration Dates Next Due Influenza Virus Vaccine 08/23/2016 Influenza Virus Vaccine Quad IM Multi-dose 6+ MO 09/20/2017 Pneumococcal Polysaccharide, PPSV23 (PNEUMOVAX) 04/26/2016 documented as of this encounter Social History Tobacco Use Types Packs/Day Years Used Date Current Every Day Smoker Cigarettes 1 30 Smokeless Tobacco: Never Used Alcohol Use Drinks/Week oz/Week Comments Yes 14 Shots of liquor 8.4 0 Standard drinks or equivalent Sex Assigned at Date Recorded Not on file Job Start Date Occupation Industry Not on file Not on file Not on file Travel History Travel Start Travel End No recent travel history available. documented as of this encounter Last Filed Vital Signs Vital Sign Reading Time Taken Comments Blood Pressure 125/56 06/23/2019 3:13 PM CDT Pulse 93 06/23/2019 3:13 PM CDT Temperature - - Respiratory Rate - - Oxygen Saturation - - Inhaled Oxygen Concentration - - Weight 145.2 kg (320 lb) 06/23/2019 3:13 PM CDT Height 177.8 cm (5' 10") 06/23/2019 3:13 PM CDT Body Mass Index 45.92 06/23/2019 3:13 PM CDT documented in this encounter Plan of Treatment Date Type Specialty Care Team Description 06/30/2019 Appointment Coal Sample Tester, Adc Cardio Echo 06/30/2019 Appointment Radiology Maria Luisa Tamayo MD [address] [place] [address] 06/30/2019 Appointment Radiology Maria Luisa Tamayo MD [address] [place] [address] [phone] 06/30/2019 Appointment Radiology Maria Luisa Tamayo MD [address] [place] [phone] 06/30/2019 Appointment Radiology Maria Luisa Tamayo MD [address] [place] [address] [phone] Health Maintenance Due Date Last Done Comments HEPATITIS C (HCV) SCREEN 1955 DTaP,Tdap,and Td Vaccines (1 - Tdap) 01/31/1976 COLONOSCOPY 2007 Zoster Recombinant Vaccine (SHINGRIX) (1 2007 of 2) LUNG CANCER SCREEN: Recommended for age 0301/31/2012 55-80 with 30 + pack year history INFLUENZA VACCINE 07/19/2019 09/20/2017, 08/23/2016 PNEUMOCOCCAL 0-64 YEARS COMBINED SERIES Completed 04/26/2016 documented as of this encounter Procedures Procedure Name Priority Date/Time Associated Diagnosis Comments ECHO ROUTINE Routine 06/23/2019 3:09 PM Preop cardiovascular exam W/DOPPLER COLOR CDT Abnormal EKG documented in this encounter Results Not on filedocumented in this encounter Visit Diagnoses Diagnosis Preop cardiovascular exam Pre-operative cardiovascular examination Abnormal EKG Nonspecific abnormal electrocardiogram (ECG) (EKG) documented in this encounter Administered Medications Medication Order MAR Action Action Date Dose Rate Site sulfur hexafluoride microsphr Given 06/23/2019 3:55 PM CDT 5 mL (LUMASON) injection 5 mL 5 mL, Intravenous, ONCE, 1 dose, 06/23/19 at 1715, Routine documented in this encounter documented as of this encounter
--- OUTSIDE RECORDS SUMMARY | 2019-09-27 16:54 | XMS REPORT | Summary of Care ---
:[address] [facility] Address [address] [place] [address] Care Team Providers Name Role Phone Sidney Clarke MD Primary Care Provider Encounter Details Date Type Department Care Team Description 06/24/[address] [facility] Doctor Unassigned, [address] [facility] [place] [address] [address] [place] [address] Allergies Active Allergy Reactions Severity Noted Date [...] Wheezing (six) hours as needed for Wheezing. documented as of this encounter (statuses as [...] of this encounter Last Filed Vital Signs Not on filedocumented in this encounter Plan of Treatment Date Type Specialty Care Team Description 06/30/2019 Appointment Rigging Supervisor, Adc Cardio Echo 06/30/2019 Appointment Radiology Maria Luisa Tamayo MD [address] [place] [phone] 06/30/2019 Appointment Maria Luisa Bynum MD [address] [place] [address] [phone] 06/30/2019 Appointment Maria Luisa Bynum MD [address] [place] [address] [phone] 06/30/2019 Appointment Maria Luisa Bynum MD [address] [place] [address] Health Maintenance Due Date Last Done Comments [...] Procedure Name Priority Date/Time Associated Diagnosis Comments EXTERNAL PROVIDER Routine 06/24/2019 12:01 AM CDT RECORDS documented in this encounter Results Not on filedocumented in this encounter Insurance Payer Benefit Plan / Group Subscriber ID Effective Dates Phone Address Type [employer] SERGEI BROWN [employer] [id number] 2018-Present PPO documented as of this encounter
--- OUTSIDE RECORDS SUMMARY | 2019-09-27 16:55 | XMS REPORT | Summary of Care ---
:1955 Author Organization [facility] Address [address] [place] [address] Care Team Providers Name Role Phone Sidney Clarke MD Primary Care Provider Reason for Visit Auth/Cert Status Reason Specialty Diagnoses / Procedures Referred By Referred To Contact Contact Echocardiograph Diagnoses Encounter for preprocedural cardiovascular examination Z01.810 Adc Echo Cardio Procedures [place] CV STRS TST XERS&/OR RX CONT ECG W/O I&R [place] CARDIAC STRESS TST,TRACING ONLY [place] CARDIAC STRESS TST,INTERP/REPT ONLY Lab-Pt [address] [facility] [place] [address] Encounter Details Date Type Department Care Team Description 06/30/2019 Hospital Encounter On license of [facility] Maria Luisa Tamayo MD Arrived [address] [place] [address] [address] [place] [address] [place] [address] Allergies Active Allergy Reactions Severity Noted Date Comments Codeine Unknown - See comments 02/24/2016 Patient walked into clinic with SOB, and trouble breathing/speaking Penicillins Unknown - See comments 02/24/2016 Patient walk in clinic SOB/trouble breathing/speaking documented as of this encounter (statuses as of 07/01/2019) Medications Medication Sig Dispensed Refills Start Date [...] as of this encounter (statuses as of 07/01/2019) Active Problems Problem Noted Date Asbestosis 05/16/2018 Cirrhosis of liver without ascites 03/26/2016 Essential hypertension 11/25/2015 Sleep apnea, obstructive 11/25/2015 documented as of this encounter (statuses as of 07/01/2019) Immunizations Name Administration Dates Next Due Influenza [...] filedocumented in this encounter Plan of Treatment Health Maintenance Due Date Last Done Comments [...] Procedure Name Priority Date/Time Associated Diagnosis Comments NM MYOCARDIUM Routine 06/30/2019 11:50 Preop cardiovascular Results for this PERFUSION STRESS AM CDT exam procedure are in AND REST Abnormal EKG the results section. documented in this encounter Results NM MYOCARDIUM PERFUSION STRESS AND REST (06/30/2019 11:50 AM CDT) Specimen Impressions Performed At Impression: PACS/VR/DOSE Normal myocardial perfusion scan with preserved ejection fraction and normal wall thickening. I was present for the stress portion. Narrative Performed At * * * * * * * * ORIGINAL REPORT * * * * * * * * PACS/VR/DOSE Pharmacological myocardial perfusion imaging report Type: Technetium 99 labeled tetrofosmin rest/stress single isotope SPECT imaging with Regadenoson pharmacological stress and gated SPECT imaging. Indication: abnormal EKG for preop cardiac evaluation Clinical history: smoking, HTN, obesity, and LORENZO Procedure: Pharmacological stress test was performed with a bolus dose of 0.4 mg of Regadenoson. Gated myocardial perfusion imaging was performed at rest following the injection of 16.3 millicuries of technetium labeled tetrofosmin and post stress following the injection of 43.6 millicuries of technetium labeled tetrofosmin. Findings: The overall quality of the study was good. Stress EKG was negative for inducible ischemia, reported separately. SPECT images demonstrate homogeneous tracer distribution throughout the myocardium. Gated SPECT images demonstrate normal wall motion and myocardial thickening. Left ventricular ejection fraction was calculated to be 78 at rest and78 post-stress. Procedure Note [facility], Radiant Results Inft User - 06/30/2019 6:10 PM CDT * * * * * * * * ORIGINAL REPORT * * * * * * * * Pharmacological myocardial perfusion imaging report Type: Technetium 99 labeled tetrofosmin rest/stress single isotope SPECT imaging with Regadenoson pharmacological stress and gated SPECT imaging. Indication: abnormal EKG for preop cardiac evaluation Clinical history: smoking, HTN, obesity, and LORENZO Procedure: Pharmacological stress test was performed with a bolus dose of 0.4 mg of Regadenoson. Gated myocardial perfusion imaging was performed at rest following the injection of 16.3 millicuries of technetium labeled tetrofosmin and post stress following the injection of 43.6 millicuries of technetium labeled tetrofosmin. Findings: The overall quality of the study was good. Stress EKG was negative for inducible ischemia, reported separately. SPECT images demonstrate homogeneous tracer distribution throughout the myocardium. Gated SPECT images demonstrate normal wall motion and myocardial thickening. Left ventricular ejection fraction was calculated to be 78 at rest and 78 post-stress. IMPRESSION Impression: Normal myocardial perfusion scan with preserved ejection fraction and normal wall thickening. I was present for the stress portion. Performing Organization Address [facility]State[facility] Phone Number PACS/VR/DOSE documented in this encounter documented as of this encounter
--- OUTSIDE RECORDS SUMMARY | 2019-09-27 16:55 | XMS REPORT | Summary of Care ---
:1955 Author Organization [facility] Address [address] [place] [address] Care Team Providers Name Role Phone Sidney Clarke MD Primary Care Provider Reason for Visit Reason Comments Results Encounter Details Date Type Department Care Team Description 07/03/2019 Telephone [facility] Cardiology- Maria Luisa Tamayo MD Results [address] [address] [facility] [address] [address] Allergies Active Allergy Reactions Severity Noted Date Comments Codeine Unknown - See comments 02/24/2016 Patient walked into clinic with SOB, and trouble breathing/speaking Penicillins Unknown - See comments 02/24/2016 Patient walk in clinic SOB/trouble breathing/speaking documented as of this encounter (statuses as of 07/03/2019) Medications Medication Sig Dispensed Refills Start Date [...] as of this encounter (statuses as of 07/03/2019) Active Problems Problem Noted Date Asbestosis 05/16/2018 Cirrhosis of liver without ascites 03/26/2016 Essential hypertension 11/25/2015 Sleep apnea, obstructive 11/25/2015 documented as of this encounter (statuses as of 07/03/2019) Immunizations Name Administration Dates Next Due Influenza [...] 30 + pack year history INFLUENZA VACCINE (#1) 2019 09/20/2017, 08/23/2016 PNEUMOCOCCAL 0-64 YEARS COMBINED SERIES Completed 04/26/2016 documented as of this encounter Results Not on filedocumented in this encounter Insurance Payer Benefit Plan / Group Subscriber ID Effective Dates Phone Address Type [employer] [id number] 2018-Present PPO documented as of this encounter
--- OUTSIDE RECORDS SUMMARY | 2019-09-27 16:55 | XMS REPORT | Summary of Care ---
:1955 Author Organization [facility] Address [address] [place] [address] Care Team Providers Name Role Phone Sidney Clarke MD Primary Care Provider Reason for Visit Auth/Cert Status Reason Specialty Diagnoses / Procedures Referred By Referred To Contact Contact Echocardiograph Diagnoses Encounter for preprocedural cardiovascular examination Z01.810 [facility] Echo Cardio Procedures [place] CV STRS TST XERS&/OR RX CONT ECG W/O I&R [place] CARDIAC STRESS TST,TRACING ONLY [place] CARDIAC STRESS TST,INTERP/REPT ONLY Lab-Pt [address] [facility] [place] [address] Encounter Details Date Type Department Care Team Description 06/30/2019 Hospital Encounter [facility] Maria Luisa Tamayo MD Arrived [address] [place] [address] [address] [place] [address] [place] [address] Allergies Active Allergy Reactions Severity [...] for the stress portion. Performing Organization Address City[facility]State[facility] Phone Number PACS/VR/DOSE documented in this encounter documented as of this encounter
--- OUTSIDE RECORDS SUMMARY | 2019-09-27 16:55 | XMS REPORT | Summary of Care ---
:1955 Author Organization [facility] Address [address] [place] [address] Care Team Providers Name Role Phone Sidney Clarke MD Primary Care Provider Encounter Details Date Type Department Care Team Description 07/02/2019 Orders Only [facility] Doctor Unassigned, No [address] [facility] [place] [address] [address] [place] [address] Allergies Active Allergy Reactions Severity Noted Date [...] Priority Date/Time Associated Diagnosis Comments EXTERNAL PROVIDER - ADC Routine 07/02/2019 12:01 AM CARDIOLOGY CDT documented in this encounter Results Not on filedocumented in this encounter Insurance Payer Benefit Plan / Group Subscriber ID Effective Dates Phone Address Type AETNA SERGEI [employer] [id number] 2018-Present PPO documented as of this encounter
--- OUTSIDE RECORDS SUMMARY | 2019-09-27 16:55 | XMS REPORT | Summary of Care ---
:1955 Author Organization [facility] Address [address] [place] [address] Care Team Providers Name Role Phone Sidney Clarke MD Primary Care Provider Reason for Referral Radiology Services (Routine) Status Reason Specialty Diagnoses / Procedures Referred By Referred To Contact Contact Closed Radiology Diagnoses Preop cardiovascular exam Abnormal EKG Preop cardiovascular exam Abnormal EKG Maria Luisa Tamayo MD Adc Nuclear Procedures NM MYOCARDIUM PERFUSION STRESS AND REST CHG MYOCARDIAL SPECT MULTIPLE STUDIES MYOCARDIUM PERFUSION STRESS AND REST [address] [place] [phone] Phone: Radiology Services (Routine) Status Reason Specialty Diagnoses / Procedures Referred By Referred To Contact Contact Closed Radiology Diagnoses Preop cardiovascular exam Abnormal EKG Preop cardiovascular exam Abnormal EKG Maria Luisa Tamayo MD Adc Nuclear Procedures NM MYOCARDIUM PERFUSION STRESS AND REST CHG MYOCARDIAL SPECT MULTIPLE STUDIES MYOCARDIUM PERFUSION STRESS AND REST [address] [place] [phone] Phone: Reason for Visit Auth/Cert Status Reason Specialty Diagnoses / Procedures Referred By Referred To Contact Contact Echocardiograph Diagnoses Encounter for preprocedural cardiovascular examination Z01.810 [facility] Echo Cardio Procedures [place] CV STRS TST XERS&/OR RX CONT ECG W/O I&R [place] CARDIAC STRESS TST,TRACING ONLY [place] CARDIAC STRESS TST,INTERP/REPT ONLY Lab-Pt [address] [facility] [place] [address] Encounter Details Date Type Department Care Team Description 06/30/2019 [facility] MD Arrived [address] [facility] [address] [place] [address] [place], [place] [address] Allergies Active Allergy Reactions Severity Noted Date [...] 78 at rest and78 post-stress. Procedure Note [facility], Radiant Results Inft User - 06/30/2019 6:10 [...] for the stress portion. Performing Organization Address City/State/Zipcode Phone Number PACS/VR/DOSE documented in this encounter Visit Diagnoses Diagnosis Preop cardiovascular exam Pre-operative cardiovascular examination Abnormal EKG Nonspecific abnormal electrocardiogram (ECG) (EKG) documented in this encounter Administered Medications Medication Order MAR Action Action Date Dose Rate Site tc 99m-tetrofosmin Given 06/30/2019 10:54 AM 43.6 millicuries (MYOVIEW) injection 43.6 CDT millicurie 43.6 millicurie, Intravenous, ONCE, 1 dose, 06/30/19 at 1100, Routine documented in this encounter documented as of this encounter
--- OUTSIDE RECORDS SUMMARY | 2019-09-27 16:55 | XMS REPORT | Summary of Care ---
:1955 Author Organization [facility] Address [address] [place] [address] Care Team Providers Name Role Phone Sidney Clarke MD Primary Care Provider Reason for Visit Auth/Cert Status Reason Specialty Diagnoses / Procedures Referred By Referred To Contact Contact Echocardiograph Diagnoses Encounter for preprocedural cardiovascular examination Z01.810 Adc Echo Cardio Procedures SD CV STRS TST XERS&/OR RX CONT ECG W/O I&R SD CARDIAC STRESS TST,TRACING ONLY SD CARDIAC STRESS TST,INTERP/REPT ONLY Lab-Pt 132 [facility] [place] [address] Encounter Details Date Type Department Care Team Description 06/30/2019 Hospital Encounter [facility] Maria Luisa Tamayo MD Arrived [address] [place] [address] [address] [place] [address] [place] [address] Allergies Active Allergy Reactions Severity [...] results section. documented in this encounter Results Not on filedocumented in this encounter Administered Medications Medication Order MAR Action Action Date Dose Rate Site tc 99m-tetrofosmin Given 06/30/2019 9:34 AM 16.3 millicuries (MYOVIEW) injection 16.3 CDT millicurie 16.3 millicurie, Intravenous, ONCE, 1 dose, 06/30/19 at 0945, Routine documented in this encounter documented as of this encounter
--- OUTSIDE RECORDS SUMMARY | 2019-09-27 16:55 | XMS REPORT | Summary of Care ---
:1955 Author Organization [facility] Address [address] [place] [address] Care Team Providers Name Role Phone Sidney Clarke MD Primary Care Provider Reason for Visit Reason Comments Results Encounter Details Date Type Department Care Team Description 07/03/[address] [facility] Cardiology- Maria Luisa Tamayo MD Results [address] [address] [facility] [address] [address] Allergies Active Allergy Reactions Severity [...] Subscriber ID Effective Dates Phone Address Type [employer] [id number] 2018-Present PPO documented as of this encounter
--- OUTSIDE RECORDS SUMMARY | 2019-09-27 16:55 | XMS REPORT | Summary of Care ---
:1955 Author Organization [facility] Address [address] [place] [address] Care Team Providers Name Role Phone Sidney Clarke MD Primary Care Provider Reason for Visit Auth/Cert Status Reason Specialty Diagnoses / Procedures Referred By Referred To Contact Contact Echocardiograph Diagnoses Encounter for preprocedural cardiovascular examination Z01.810 [facility] Echo Cardio Procedures [place] CV STRS TST XERS&/OR RX CONT ECG W/O I&R [place] CARDIAC STRESS TST,TRACING ONLY [place] CARDIAC STRESS TST,INTERP/REPT ONLY Lab-Pt [address] [place] [address] Encounter Details Date Type Department Care Team Description 06/30/2019 Hospital Encounter [facility] Unknown, Attending [facility] Heart [facility], Adc Cardio Echo [address] [place] [address] Allergies Active Allergy Reactions Severity Noted Date [...] Procedure Name Priority Date/Time Associated Diagnosis Comments CONSENT/REFUSAL FOR Routine 06/30/2019 9:09 AM DIAGNOSIS AND TREATMENT CDT ASSIGNMENT OF BENEFITS Routine 06/30/2019 9:09 AM CDT DISCLOSURE AND CONSENT, Routine 06/30/2019 12:01 AM MEDICAL AND SURGICAL CDT PROCEDURES documented in this encounter Results Not on filedocumented in this encounter Administered Medications Medication Order MAR Action Action Date Dose Rate Site Regadenoson (LEXISCAN) injection Given 06/30/2019 10:54 AM CDT 0.4 mg 0.4 mg 0.4 mg, IV Push, ONCE, 1 dose, 06/30/19 at 1115, Routine, 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
--- OUTSIDE RECORDS SUMMARY | 2019-09-27 16:55 | XMS REPORT | Summary of Care ---
:1955 Author Organization [facility] Address [address] [place] [address] Care Team Providers Name Role Phone Sidney Clarke MD Primary Care Provider Reason for Visit Reason Comments Pre-op Clearance Encounter Details Date Type Department Care Team Description 06/29/2019 Telephone [facility] Cardiology- Maria Luisa Tamayo MD Pre-op Clearance [address] [place] [address] [place], [place] [phone] Allergies Active Allergy Reactions Severity Noted Date Comments Codeine Unknown - See comments 02/24/2016 Patient walked into clinic with SOB, and trouble breathing/speaking Penicillins Unknown - See comments 02/24/2016 Patient walk in clinic SOB/trouble breathing/speaking documented as of this encounter (statuses as of 07/02/2019) Medications Medication Sig Dispensed Refills Start Date [...] as of this encounter (statuses as of 07/02/2019) Active Problems Problem Noted Date Asbestosis 05/16/2018 Cirrhosis of liver without ascites 03/26/2016 Essential hypertension 11/25/2015 Sleep apnea, obstructive 11/25/2015 documented as of this encounter (statuses as of 07/02/2019) Immunizations Name Administration Dates Next Due Influenza [...] Dates Phone Address Type [employer]ET[employer] SERGEI BROWN [employer] [id number] 2018-Present PPO documented as of this encounter
--- OUTSIDE RECORDS SUMMARY | 2019-09-27 16:56 | XMS REPORT | Summary of Care ---
:1955 Author Organization [facility] Address [address] [place] [address] Care Team Providers Name Role Phone Sidney Clarke MD Primary Care Provider Reason for Visit Reason Comments Refill Request Encounter Details Date Type Department Care Team Description 07/24/2019 Refill [facility] Family Medicine Sidney Clarke MD Refill Request - [address] [address] [place] [address] Allergies Active Allergy Reactions Severity Noted Date Comments Codeine Unknown - See comments 02/24/2016 Patient walked into clinic with SOB, and trouble breathing/speaking Penicillins Unknown - See comments 02/24/2016 Patient walk in clinic SOB/trouble breathing/speaking documented as of this encounter (statuses as of 07/24/2019) Medications Medication Sig Dispensed Refills Start End Date Status Date metoprolol succinate XL Take 1 30 tablet 12 Active 50 mg 24 hr tablet by 7 tabletIndications: mouth Essential hypertension daily. AMLODIPINE 5 mg TAKE 1 30 tablet 0 Active tabletIndications: TABLET BY 8 Essential hypertension MOUTH DAILY hydroCHLOROthiazide 25 Take 1 30 tablet 5 Active mg tabletIndications: tablet by 9 Essential hypertension mouth daily. triamcinolone acetonide Apply to 80 g 1 Active 0.1 % creamIndications: area(s) 2 9 Rash (two) times daily. lisinopril 40 mg Take 1 30 tablet 12 Active tabletIndications: tablet by 9 Essential hypertension mouth daily. gabapentin 100 mg Take 1 90 capsule 12 Active capsuleIndications: RLS capsule by 9 (restless legs syndrome) mouth 3 (three) times daily. furosemide 40 mg Take 1 30 tablet 12 Active tabletIndications: tablet by 9 Edema, unspecified type mouth daily. ALBUTEROL 90 TAKE 2 8.5 Inhaler 0 Active mcg/actuation PUFFS BY 9 inhalerIndications: MOUTH EVERY Wheezing 6 HOURS NEEDED FOR WHEEZE albuterol 90 Inhale 2 8.5 g 0 07/24/20 Discontinued mcg/actuation Puffs every 9 19 inhalerIndications: 6 (six) Wheezing hours as needed for Wheezing. documented as of this encounter (statuses as of 07/24/2019) Active Problems Problem Noted Date Asbestosis 05/16/2018 Cirrhosis of liver without ascites 03/26/2016 Essential hypertension 11/25/2015 Sleep apnea, obstructive 11/25/2015 documented as of this encounter (statuses as of 07/24/2019) Immunizations Name Administration Dates Next Due Influenza [...] filedocumented in this encounter Visit Diagnoses Diagnosis Wheezing documented in this encounter Insurance Payer Benefit Plan / Group Subscriber ID Effective Dates Phone Address Type [employer]CATHRYN BROWN [employer] [id number] 2018-Present PPO documented as of this encounter
--- OUTSIDE RECORDS SUMMARY | 2019-09-27 16:56 | XMS REPORT | Summary of Care ---
:1955 Author Organization [facility] Address [address] [place] [address] Care Team Providers Name Role Phone Sidney Clarke MD Primary Care Provider Reason for Visit Reason Comments Refill Request Encounter Details Date Type Department Care Team Description 07/21/2019 Refill [facility] Family Medicine Sidney Clarke MD Refill Request - [address] [phone] [place] [phone] Allergies Active Allergy Reactions Severity Noted Date Comments Codeine Unknown - See comments 02/24/2016 Patient walked into clinic with SOB, and trouble breathing/speaking Penicillins Unknown - See comments 02/24/2016 Patient walk in clinic SOB/trouble breathing/speaking documented as of this encounter (statuses as of 07/22/2019) Medications Medication Sig Dispensed Refills Start Date [...] as of this encounter (statuses as of 07/22/2019) Active Problems Problem Noted Date Asbestosis 05/16/2018 Cirrhosis of liver without ascites 03/26/2016 Essential hypertension 11/25/2015 Sleep apnea, obstructive 11/25/2015 documented as of this encounter (statuses as of 07/22/2019) Immunizations Name Administration Dates Next Due Influenza [...] filedocumented in this encounter Visit Diagnoses Diagnosis RLS (restless legs syndrome) Restless legs syndrome (RLS) documented in this encounter Insurance Payer Benefit Plan / Group Subscriber ID Effective Dates Phone Address Type [employer]ET[employer] SERGEI BROWN [employer] [id number] 2018-Present PPO documented as of this encounter
== END 2019-09-17 12:56 | disposition home or self-care (01) ==
LOC: ER 12:36 → ERHOLD 16:40 → 2ND 17:49
PROVIDERS: ADMIT Family Medicine; ATTEND Family Medicine
DX: K72.00 Acute and subacute hepatic failure without coma (principal); D69.6 Thrombocytopenia, unspecified; K74.60 Unspecified cirrhosis of liver; I11.0 Hypertensive heart disease with heart failure; I50.9 Heart failure, unspecified; F17.210 Nicotine dependence, cigarettes, uncomplicated; I45.10 Unspecified right bundle-branch block; I87.8 Other specified disorders of veins; I83.009 Varicose veins of unspecified lower extremity with ulcer of unspecified site; F41.9 Anxiety disorder, unspecified; F51.04 Psychophysiologic insomnia
CPT/HCPCS: 96365; 96368; 93005; 85025 ×2; 81001; 80048; 36415; 82140 ×2; 83735; 85610; 80076; 84484; 83690; 80053; 83880; 70450; 71045; 93970; 99251; 94760 ×3; 96375; 99285; 96366; J3411; J7030; G0378 ×3

== ENCOUNTER 2019-09-25 18:11 | Inpatient (IN) | payer OTHER ==
[2019-09-25 18:53] LABS: Absolute Lymphocytes (CBC) 1.2 K/uL (0.7-4.9); Basophils % 0.9 % (0-1.3); Hematocrit 45.1 % (39.6-49.0); Lymphocytes % 20.7 % (15.3-44.8); MPV 9.1 fL (7.6-11.3); RBC Red Blood Cell Count 4.65 M/uL (4.33-5.43)
[2019-09-25 18:54] LABS: Protime INR 1.27
[2019-09-25 19:07] LABS: Albumin 3.5 g/dL (3.4-5.0); Bilirubin Direct 1.2 mg/dL (0-0.2); Bilirubin Total 3.3 mg/dL (0.2-1.0); Magnesium 2.2 mg/dL (1.8-2.4); Potassium 4.2 mmol/L (3.5-5.1); Protein, Total 8.9 g/dL (6.4-8.2); Troponin (Emerg Dept Use Only) 0.04 ng/mL (0.0-0.045)
[2019-09-25] MEDS ORDERED: LACTULOSE 20 GM/30 ML UCUP ONE (19:11)
[2019-09-25] MEDS ORDERED: FAMOTIDINE 20 MG/2 ML VIAL IV ONE (19:11)
[2019-09-25] MEDS ORDERED: THIAMINE 200 MG/2 ML INJ ONE (19:11)
--- NOTE | 2019-09-25 19:14 | RAD REPORT ---
EXAM DESCRIPTION: CT - Head C Spine Cap Wo Con - 09/25/2019 6:59 pm CLINICAL HISTORY: Trauma, head and neck injury. Chest, abdomen and pelvis pain. Pain;Weakness COMPARISON: Head Brain Wo Cont dated 09/16/2019 TECHNIQUE: CT head without contrast. CT cervical spine without contrast with coronal and sagittal reformatted images. CT chest, abdomen and pelvis without contrast with coronal and sagittal reformatted images of the spi ne. All CT scans are performed using dose optimization technique as appropriate and may include automated exposure control or mA/KV adjustment according to patient size. FINDINGS: CT HEAD WITHOUT CONTRAST: No intracranial hemorrhage, hydrocephalus or extra-axial fluid collection. No areas of brain edema o r midline shift. The paranasal sinuses and mastoids are clear. The calvarium is intact. CT CERVICAL SPINE WITHOUT CONTRAST: No fracture or subluxation. Mild cervical spondylosis is present. The prevertebral soft tissues are n ormal in thickness. CT CHEST, ABDOMEN, PELVIS WITHOUT CONTRAST: NOTE: Lack of contrast is a significant limitation in the assessment of trauma related findings. Spec ifically, solid organ, vascular and bowel evaluation is significantly limited. Mild interstitial pulmonary edema suspected.No pneumothorax or pericardial/pleural fluid. No evidence of intra-abdominal visceral injury, free fluid or free air is seen within the above detai led limitations. Liver cirrhosis with splenomegaly noted. Mild infrarenal abdominal aortic aneurysm s een measuring 3.5 cm. No concerning pelvic findings. No fractures. IMPRESSION: Negative for acute traumatic findings within the above detailed limitations.
--- NOTE | 2019-09-25 19:16 | RAD REPORT ---
EXAM DESCRIPTION: RAD - Chest Single View - 09/25/2019 7:11 pm CLINICAL HISTORY: low O2 sat Chest pain. COMPARISON: Chest Single View dated 09/16/2019; Chest Pa And Lat (2 Views) dated 06/08/2017; CHEST PA AND LAT 2 VIEW dated 04/01/2010 FINDINGS: Portable technique limits examination quality. Mild interstitial pulmonary edema is seen. The heart is normal in size. Mildly tortuous thoracic aort a.
--- NOTE | 2019-09-25 19:36 | ER ---
Nurse's Notes [facility] Name: Marino Yielding Age: 64 yrs Sex: Male : 1955 Arrival Date: 09/25/2019 Time: 18:13 Bed 2 Private MD: Diagnosis: Altered mental status, unspecified;Unspecified cirrhosis of liver;Alcohol abuse;Encephalopathy, unspecified-hepatic;Lymphedema, not elsewhere classified;Obesity, unspecified;Unspecified combined systolic (congestive) and diastolic (congestive) heart failure Presentation: 09/25 18:34 Presenting complaint: EMS states: FOUND DOWN AND ALTERED BY FAMILY, RECENT bp HOSPITALIZATION FOR AMS/CIRRHOSIS. Transition of care: patient was not received from another setting of care. Onset of symptoms is unknown. Risk Assessment: Do you want to hurt yourself or someone else? Unable to obtain. Initial Sepsis Screen: Does the patient meet any 2 criteria? RR > 20 per min. No. Patient's initial sepsis screen is negative. Does the patient have a suspected source of infection? No. Patient's initial sepsis screen is negative. Care prior to arrival: Glucose check: 96. 18:34 Method Of Arrival: EMS: [facility] bp 18:34 Acuity: OLENA 2 bp 18:34 Note EMS reports pt's O2 sat was 80% RA upon their arrival and increased to 97% per 5L aa5 NC. Triage Assessment: 18:36 General: Appears distressed, obese, unkempt, Behavior is restless, uncooperative. Pain: bp Unable to use pain scale. Does not appear to understand pain scale. EENT: No deficits noted. Neuro: Level of Consciousness is confused, Oriented to none. Cardiovascular: Rhythm is sinus rhythm. Respiratory: Airway is patent Respiratory effort is unlabored. GI: Abdomen is obese. : No signs and/or symptoms were reported regarding the genitourinary system. Derm: No deficits noted. Musculoskeletal: No deficits noted. Historical: - Allergies: 18:36 Codeine; bp - Home Meds: 18:36 furosemide 40 mg Oral tab 1 tab once daily [Active]; gabapentin 100 mg Oral cap 3 times bp per day [Active]; Hydrocodone [Active]; lisinopril 40 mg Oral tab 1 tab once daily [Active]; Vimovo 500-20 mg Oral TbID 1 tab 2 times per day [Active]; - PMHx: 18:36 CHF; Cirrhosis; Hypertension; lymphedema; bp - Immunization history:: Adult Immunizations unknown. - Social history:: Smoking status: unknown. - Ebola Screening: : No symptoms or risks identified at this time. - Family history:: not pertinent. Screenin:42 Abuse screen: Denies threats or abuse. Denies injuries from another. Nutritional bp screening: No deficits noted. Tuberculosis screening: No symptoms or risk factors identified. Fall Risk Fall in past 12 months (25 points). IV access (20 points). Mental Status- Overestimates/Forgets Limitations (15 pts.). Assessment: 18:41 General: SEE TRIAGE NOTE. bp 18:50 Reassessment: Pt currently in CT . aa5 19:20 General: Appears distressed, uncomfortable, Behavior is uncooperative, PT is back from jb4 Radiology. Pain: Unable to use pain scale. Patient is disoriented. Neuro: Level of Consciousness is confused, lethargic, Oriented to person, place. Cardiovascular: Patient's skin is warm and dry. Respiratory: Airway is patent Respiratory effort is even, unlabored, Respiratory pattern is regular, symmetrical. GI: No deficits noted. No signs and/or symptoms were reported involving the gastrointestinal system. Abdomen is obese. : No deficits noted. No signs and/or symptoms were reported regarding the genitourinary system. EENT: No deficits noted. No signs and/or symptoms were reported regarding the EENT system. Derm: Skin is intact, Skin is pink, warm \T\ dry. Musculoskeletal: Circulation, motion, and sensation intact. 20:11 Reassessment: No changes from previously documented assessment. Patient and/or family jb4 updated on plan of care and expected duration. Pain level reassessed. 20:36 Reassessment: Report called to Hugo in ICU. jb4 21:01 Reassessment: Patient and/or family updated on plan of care and expected duration. Pain jb4 level reassessed. PT transported to ICU via stretcher. IV intact. No medications infusing. Neuro: Level of Consciousness is confused, lethargic, Oriented to person, place. Respiratory: Airway is patent Respiratory effort is even, unlabored, Respiratory pattern is regular, symmetrical. Vital Signs: 18:36 BP 123 / 60; Pulse 79; Resp 14; Temp 98.6; Pulse Ox 95% ; Weight 147.42 kg; bp 20:13 BP 103 / 64; Pulse 76; Resp 16; Pulse Ox 94% on R/A; jb4 20:45 BP 109 / 72; Pulse 84; Resp 16; Pulse Ox 95% on R/A; jb4 ED Course: 18:13 Patient arrived in ED. aa5 18:30 Inserted saline lock: 20 gauge in right upper arm, using aseptic technique. Blood bp collected. 18:31 Kendell Diane, PAZ is Primary Nurse. bp 18:32 Alberto Mccoy MD is Attending Physician. denita 18:35 Triage completed. bp 18:36 Arm band placed on left wrist. bp 18:42 Patient has correct armband on for positive identification. Bed in low position. Call bp light in reach. Side rails up X2. Adult w/ patient. 18:[address] via stretcher. nj 18:58 CT completed. Patient tolerated procedure well. Patient moved back from CT. nj 18:59 CT Traumagram (Head C Spine CAP wo con) In Process Unspecified. EDMS 19:09 XRAY Chest (1 view) In Process Unspecified. EDMS 19:33 Brennan Murcia MD is Hospitalizing Provider. [facility] 20:09 Silva cath inserted, using sterile technique, 16 Fr., by ok, balloon inflated, to jb4 gravity drainage, urine specimen collected. 20:36 No provider procedures requiring assistance completed. Patient admitted, IV remains in jb4 place. Administered Medications: 19:25 Drug: Pepcid 20 mg Route: IVP; Site: right upper arm; jb4 20:14 Follow up: Response: No adverse reaction jb4 19:27 Drug: Thiamine 100 mg Route: IV; Rate: bolus; Site: right upper arm; jb4 19:30 Follow up: Response: No adverse reaction; IV Status: Completed infusion jb4 19:31 Drug: Lactulose 30 grams Volume: 45 ml; Route: PO; jb4 20:15 Follow up: Response: No adverse reaction jb4 20:00 Drug: Lasix 20 mg Route: IVP; Site: right upper arm; jb4 20:15 Follow up: Response: No adverse reaction jb4 20:02 Drug: Rocephin 1 grams Route: IV; Rate: per protocol; Site: right upper arm; jb4 20:04 Follow up: Response: No adverse reaction; IV Status: Completed infusion jb4 Outcome: 19:35 Decision to Hospitalize by Provider. denita 20:36 Admitted to ICU accompanied by nurse, via stretcher, room ICU 3, on monitor, with jb4 chart, Report called to PAZ Arias 20:36 Condition: improved 20:36 Discharge instructions given to family, Instructed on the need for admit, Demonstrated understanding of instructions. 21:02 Patient left the ED. jb4 Signatures: Dispatcher [employer] EDAlberto Vicente MD MD cha Calderon, Audri, RN RN aa5 Sidney Parrish RN RN jb4 Yony Oviedo Brian, RN RN bp Corrections: (The following items were deleted from the chart) 20:06 19:25 Pepcid 20 mg IVP in right upper arm bp jb4 20:07 19:27 Thiamine 100 mg IV at bolus in right upper arm bp jb4 20:08 19:31 Lactulose 30 grams 45 ml PO 45 ml bp jb4
--- NOTE | 2019-09-25 19:36 | EDPHYS ---
Physician Documentation [facility] Name: Marino Yielding Age: 64 yrs Sex: Male : 1955 Arrival Date: 09/25/2019 Time: 18:13 Bed 2 Private MD: ED Physician Alberto Mccoy HPI: 09/25 19:27 This 64 yrs old Male presents to ER via EMS with complaints of Unresponsive. [facility] 19:27 fall, on floor, ams, hx of cirrhosis. Details of fall: The patient fell from an upright denita position. Onset: The symptoms/episode began/occurred just prior to arrival. Associated injuries: The patient sustained no obvious injury. The patient presents with confusion, decreased mental status, disorientation, trouble concentrating. Onset: The symptoms/episode began/occurred at an unknown time. Possible causes: unknown. Associated signs and symptoms: Pertinent positives: confusion, dizziness, shortness of breath. Patient's baseline: Neuro: alert and fully oriented. Historical: - Allergies: 18:36 Codeine; bp - Home Meds: 18:36 furosemide 40 mg Oral tab 1 tab once daily [Active]; gabapentin 100 mg Oral cap 3 times bp per day [Active]; Hydrocodone [Active]; lisinopril 40 mg Oral tab 1 tab once daily [Active]; Vimovo 500-20 mg Oral TbID 1 tab 2 times per day [Active]; - PMHx: 18:36 CHF; Cirrhosis; Hypertension; lymphedema; bp - Immunization history:: Adult Immunizations unknown. - Social history:: Smoking status: unknown. - Ebola Screening: : No symptoms or risks identified at this time. - Family history:: not pertinent. ROS: 19:27 Eyes: Negative for injury, pain, redness, and discharge, ENT: Negative for injury, denita pain, and discharge, Cardiovascular: Negative for chest pain, palpitations, and edema, Back: Negative for injury and pain, : Negative for injury, bleeding, discharge, and swelling, MS/Extremity: Negative for injury and deformity, Skin: Negative for injury, rash, and discoloration, Allergy/Immunology: Negative for hives, rash, and allergies, Endocrine: Negative for neck swelling, polydipsia, polyuria, polyphagia, and marked weight changes, Hematologic/Lymphatic: Negative for swollen nodes, abnormal bleeding, and unusual bruising. 19:27 Constitutional: Positive for malaise. 19:27 Respiratory: Positive for cough, shortness of breath, at rest. 19:27 Abdomen/GI: Positive for abdominal distension. 19:27 MS/extremity: Positive for swelling. 19:27 Skin: Positive for abrasion(s). Exam: 19:27 Constitutional: This is a well developed, well nourished patient who is awake, alert, denita and in no acute distress. Head/Face: Normocephalic, atraumatic. Eyes: Pupils equal round and reactive to light, extra-ocular motions intact. Lids and lashes normal. Conjunctiva and sclera are non-icteric and not injected. Cornea within normal limits. Periorbital areas with no swelling, redness, or edema. ENT: Nares patent. No nasal discharge, no septal abnormalities noted. Tympanic membranes are normal and external auditory canals are clear. Oropharynx with no redness, swelling, or masses, exudates, or evidence of obstruction, uvula midline. Mucous membranes moist. Neck: Trachea midline, no thyromegaly or masses palpated, and no cervical lymphadenopathy. Supple, full range of motion without nuchal rigidity, or vertebral point tenderness. No Meningismus. Chest/axilla: Normal chest wall appearance and motion. Nontender with no deformity. No lesions are appreciated. Back: No spinal tenderness. No costovertebral tenderness. Full range of motion. Male : Normal genitalia with no discharge or lesions. 19:27 Cardiovascular: Rate: normal, Rhythm: regular, Pulses: Pulses are 4+ in bilateral radial, brachial, femoral, popliteal, posterior tibial and and dorsalis pedis arteries.. Heart sounds: normal, Edema: 3+ edema to level of left midcalf and right midcalf, JVD: is not appreciated. 19:27 Neuro: Orientation: Not oriented to person, place, time, situation, Mentation: inappropriate for stated age, slow to respond, confused, Memory: unable to test, Cerebellar function: unable to test, seizure activity, is not displayed by the patient. Vital Signs: 18:36 BP 123 / 60; Pulse 79; Resp 14; Temp 98.6; Pulse Ox 95% ; Weight 147.42 kg; bp 20:13 BP 103 / 64; Pulse 76; Resp 16; Pulse Ox 94% on R/A; jb4 20:45 BP 109 / 72; Pulse 84; Resp 16; Pulse Ox 95% on R/A; jb4 MDM: 18:32 Patient medically screened. [facility] 19:31 Data reviewed: vital signs, nurses notes, lab test result(s), EKG, radiologic studies, [facility] CT scan, plain films. 09/25 18:29 Order name: Basic Metabolic Panel; Complete Time: 19:12 [facility] 09/25 18:29 Order name: CBC with Diff; Complete Time: 19:26 [facility] 09/25 18:29 Order name: LFT's; Complete Time: 19:12 [facility] 09/25 18:29 Order name: Magnesium; Complete Time: 19:12 [facility] 09/25 18:29 Order name: NT PRO-BNP; Complete Time: 19:12 [facility] 09/25 18:29 Order name: PT-INR; Complete Time: 19:26 [facility] 09/25 18:29 Order name: Troponin (emerg Dept Use Only); Complete Time: 19:12 [facility] 09/25 18:29 Order name: AMMONIA; Complete Time: 19:12 [facility] 09/25 18:33 Order name: Urine Culture [facility] 09/25 18:45 Order name: Lipase; Complete Time: 19:12 [facility] 09/25 18:53 Order name: Acetaminophen; Complete Time: 19:26 [facility] 09/25 18:53 Order name: ETOH Level; Complete Time: 19:26 [facility] 09/25 18:53 Order name: Ptt, Activated; Complete Time: 19:26 [facility] 09/25 18:29 Order name: XRAY Chest (1 view); Complete Time: 19:43 [facility] 09/25 18:53 Order name: Salicylate [facility] 09/25 18:53 Order name: Urine Drug Screen [facility] 09/25 19:26 Order name: ABG [facility] 09/25 19:47 Order name: Glucose, Ancillary Testing ED[facility] 09/25 20:21 Order name: Urine Dipstick--Ancillary (enter results) [facility] 09/25 20:23 Order name: Ammonia ED[facility] 09/25 20:23 Order name: Ammonia ED[facility] 09/25 20:23 Order name: CBC with Automated Diff [facility] 09/25 20:23 Order name: CBC with Automated Diff [facility] 09/25 20:23 Order name: Comprehensive Metabolic Panel [facility] 09/25 20:23 Order name: Comprehensive Metabolic Panel [facility] 09/25 20:23 Order name: Protime (+INR) [facility] 09/25 20:23 Order name: Protime (+INR) [facility] 09/25 20:23 Order name: PTT, Activated Partial Thromb ED[facility] 09/25 20:23 Order name: PTT, Activated Partial Thromb ED[facility] 09/25 18:29 Order name: EKG; Complete Time: 18:30 [facility] 09/25 18:29 Order name: Cardiac monitoring; Complete Time: 18:43 [facility] 09/25 18:29 Order name: EKG - Nurse/Tech; Complete Time: 18:43 [facility] 09/25 18:29 Order name: IV Saline Lock; Complete Time: 18:43 [facility] 09/25 18:29 Order name: Labs collected and sent; Complete Time: 18:43 [facility] 09/25 18:29 Order name: O2 Per Protocol; Complete Time: 18:43 [facility] 09/25 18:29 Order name: O2 Sat Monitoring; Complete Time: 18:43 [facility] 09/25 18:33 Order name: Urine Dipstick-Ancillary (obtain specimen); Complete Time: 20:14 [facility] 09/25 18:40 Order name: Silva; Complete Time: 20:14 [facility] 09/25 18:40 Order name: CT Traumagram (Head C Spine CAP wo con); Complete Time: 19:43 [facility] 09/25 18:54 Order name: Blood Glucose Level; Complete Time: 19:35 [facility] 09/25 20:23 Order name: CONS Pharmacy Consult [facility] 09/25 20:23 Order name: Regular EDND Administered Medications: 19:25 Drug: Pepcid 20 mg Route: IVP; Site: right upper arm; jb4 20:14 Follow up: Response: No adverse reaction jb4 19:27 Drug: Thiamine 100 mg Route: IV; Rate: bolus; Site: right upper arm; jb4 19:30 Follow up: Response: No adverse reaction; IV Status: Completed infusion jb4 19:31 Drug: Lactulose 30 grams Volume: 45 ml; Route: PO; jb4 20:15 Follow up: Response: No adverse reaction jb4 20:00 Drug: Lasix 20 mg Route: IVP; Site: right upper arm; jb4 20:15 Follow up: Response: No adverse reaction jb4 20:02 Drug: Rocephin 1 grams Route: IV; Rate: per protocol; Site: right upper arm; jb4 20:04 Follow up: Response: No adverse reaction; IV Status: Completed infusion jb4 Disposition: 09/25/19 19:35 Hospitalization ordered by Brennan Murcia for Inpatient Admission. Preliminary diagnosis are Altered mental status, unspecified, Unspecified cirrhosis of liver, Alcohol abuse, Encephalopathy, unspecified - hepatic, Lymphedema, not elsewhere classified, Obesity, unspecified, Unspecified combined systolic (congestive) and diastolic (congestive) heart failure. - Bed requested for Intensive Care Unit. - Status is Inpatient Admission. jb4 - Condition is Fair. - Problem is new. - Symptoms have improved. UTI on Admission? No Signatures: Dispatcher [employer] [facility] Julissa Leon RN RN mw Anderson, Corey, MD MD cha Calderon, Audri RN RN [phone] Sidney Parrish RN RN jb4 Kendell Diane RN RN bp Corrections: (The following items were deleted from the chart) 18:44 18:33 LIPASE+C.LAB.BRZ ordered. [facility] 19:39 19:35 Hospitalization Ordered by Brennan Murcia MD for Inpatient Admission. Preliminary [facility] diagnosis is Altered mental status, unspecified; Unspecified cirrhosis of liver; Alcohol abuse; Encephalopathy, unspecified - hepatic; Lymphedema, not elsewhere classified; Obesity, unspecified. Bed requested for Intensive Care Unit. Status is Inpatient Admission. Condition is Fair. Problem is new. Symptoms have improved. UTI on Admission? No. denita 19:53 19:39 09/25/2019 19:35 Hospitalization Ordered by Brennan Murcia MD for Inpatient Admission. Preliminary diagnosis is Altered mental status, unspecified; Unspecified cirrhosis of liver; Alcohol abuse; Encephalopathy, unspecified - hepatic; Lymphedema, not elsewhere classified; Obesity, unspecified; Unspecified combined systolic (congestive) and diastolic (congestive) heart failure. Bed requested for Intensive Care Unit. Status is Inpatient Admission. Condition is Fair. Problem is new. Symptoms have improved. UTI on Admission? No. denita 21:02 19:53 09/25/2019 19:35 Hospitalization Ordered by Brennan Murcia MD for Inpatient jb4 Admission. Preliminary diagnosis is Altered mental status, unspecified; Unspecified cirrhosis of liver; Alcohol abuse; Encephalopathy, unspecified - hepatic; Lymphedema, not elsewhere classified; Obesity, unspecified; Unspecified combined systolic (congestive) and diastolic (congestive) heart failure. Bed requested for Intensive Care Unit. Status is Inpatient Admission. Condition is Fair. Problem is new. Symptoms have improved. UTI on Admission? No. mw
[2019-09-25] MEDS ORDERED: FUROSEMIDE 20 MG/ 2ML VIAL ONE (19:37)
[2019-09-25] MEDS ORDERED: CEFTRIAXONE/SWI 1gm 1 GM/10 ML SYR ONE (19:38)
[2019-09-25] MEDS ORDERED: ONDANSETRON 4 MG/2 ML VIAL IV PRN (20:20)
[2019-09-25 20:25] LABS: Urine Blood NEGATIVE (NEG); Urine Glucose NEGATIVE (NEG); Urine Protein NEGATIVE (NEG); Urine Specific Gravity 1.025 (1.005-1.030); Urine pH 5.5 (5.0-7.0)
[2019-09-25 20:37] LABS: Barbiturates NEGATIVE (NEGATIVE); Benzodiazepines NEGATIVE (NEGATIVE); Cocaine NEGATIVE (NEGATIVE); METHAMPHETAM NEGATIVE (NEGATIVE); Methadone NEGATIVE (NEGATIVE); Opiates NEGATIVE (NEGATIVE); Phencyclidine NEGATIVE (NEGATIVE); THC Cannibis NEGATIVE (NEGATIVE)
[2019-09-25] MEDS ORDERED: NA CHLORIDE 0.9% 1,000 ML IV SCH (21:00)
[2019-09-25] MEDS: Rifaximin 550 MG Tab PO SCH (21:00)
[2019-09-25] MEDS: LACTULOSE 20 GM/30 ML UCUP PO SCH (21:19)
[2019-09-25 22:36] VITALS: BMI 42.7
[2019-09-26] MEDS: LACTULOSE 20 GM/30 ML UCUP PO SCH ×4 (03:57→20:18)
[2019-09-26 05:19] LABS: Absolute Lymphocytes (CBC) 1.2 K/uL (0.7-4.9); Basophils % 1.2 % (0-1.3); Hematocrit 39.2 % (39.6-49.0); Lymphocytes % 22.4 % (15.3-44.8); RBC Red Blood Cell Count 4.09 M/uL (4.33-5.43)
[2019-09-26 05:34] LABS: Albumin 3.3 g/dL (3.4-5.0); Bilirubin Total 3.4 mg/dL (0.2-1.0); Potassium 3.8 mmol/L (3.5-5.1); Protein, Total 8.1 g/dL (6.4-8.2)
[2019-09-26 05:44] LABS: Protime INR 1.31
[2019-09-26 06:12] LABS: Arterial Blood Carboxyhemoglob 2.7 % (0-1.5); Blood Gas Oxyhemoglobin 93.1 % (94-97); Blood O2 Saturation 96.2 % (92-98.5)
--- NOTE | 2019-09-26 07:18 | P.HP ---
Certification for Inpatient Patient admitted to: Inpatient With expected LOS: >2 Midnights Patient will require the following post-hospital care: None Practitioner: I am a practitioner with admitting privileges, knowledge of patient current condition, hospital course, and medical plan of care. Services: Services provided to patient in accordance with Admission requirements found in Title 42 Section 412.3 of the Code of Federal Regulations Patient History Date of Service: 09/25/19 Reason for admission: Hepatic encephalopathy History of Present Illness: Patient is a 64-year-old gentleman who comes into the hospital with hepatic encephalopathy. Patient has history of cirrhosis secondary to alcohol use, and patient has a recent admission 1 week ago with similar issues. At that time, ammonia level was also mildly elevated. Patient appears to be noncompliant with his medications. He is very lethargic and unable to answer my questions at this time. He will be admitted to the ICU and will continue lactulose at this time. Hopefully, we can get his ammonia level down in his mental status will recover. His CT scan of the brain is negative. He actually had a full body CT scan which revealed an incidental finding of abdominal aortic aneurysm that was only 3.5 cm. This will need to be monitored going for as an outpatient. Recheck LFTs and ammonia level in the morning. Allergies codeine Adverse Reaction (Verified 09/25/19 22:39) Rash - Past Medical/Surgical History Has patient received pneumonia vaccine in the past: Yes Diabetic: No -: CHF -: Lymphadema -: HTN -: Cirrhosis -: sleep apnea -: asbestos -: Lt total knee replacement - Family History Father Medical History: Hypertension, Cancer Mother Medical History: Hypertension Brother Medical History: Heart disease, Stroke - Social History Smoking Status: Current every day smoker Alcohol use: Yes CD- Drugs: No Caffeine use: Yes Place of Residence: Home Review of Systems is unable to be obtained Physical Examination - Vital Signs Temperature: 97.1 F Blood Pressure: 117/62 Pulse: 88 Respirations: 21 Pulse Ox (%): 94 - Physical Exam General: In no apparent distress, Oriented x1, Disheveled, Confused, Other ( Lethargic) HEENT: Atraumatic, PERRLA, Mucous membr. moist/pink, EOMI, Sclerae nonicteric Neck: Supple, 2+ carotid pulse no bruit, No LAD, Without JVD or thyroid abnormality Respiratory: Clear to auscultation bilaterally, Normal air movement Cardiovascular: Regular rate/rhythm, Normal S1 S2 Gastrointestinal: Normal bowel sounds, Soft and benign, Non-distended, No tenderness Musculoskeletal: No clubbing, No swelling, No tenderness Integumentary: No rashes Neurological: Normal tone, Sensation intact, Cranial nerves 3-12 intact, Normal affect, Abnormal gait, Abnormal speech (He talked with the slurred speech and not getting his words out that clearly at this time), Abnormal strength Lymphatics: No axilla or inguinal lymphadenopathy - Studies Laboratory Data (last 24 hrs) 09/25/19 18:33: Lipase Cancelled 09/25/19 18:30: APTT 36.5 09/25/19 18:30: PT 14.8 H, INR 1.27 09/25/19 18:30: WBC 5.7 D, Hgb 15.2, Hct 45.1 D, Plt Count 88 L 09/25/19 18:30: Sodium 139, Potassium 4.2, BUN 20 H, Creatinine 0.94, Glucose 89 , Magnesium 2.2, Total Bilirubin 3.3 H, AST 56 H, ALT 28, Alkaline Phosphatase 175 H, Lipase 126 Assessment & Plan - Problems (Diagnosis) (1) Hepatic encephalopathy Current Visit: Yes Status: Acute (2) Alcoholic cirrhosis Current Visit: Yes Status: Acute (3) Metabolic acidosis with respiratory alkalosis Current Visit: Yes Status: Acute - Plan Plan: 1. Lactulose and rifaximin 2. Recheck ammonia level 3. Gentle hydration 4. Monitor bicarb level 5. May need an echocardiogram to assess cardiac functioning 6. Hepatitis panel 7. Counseled patient and family when patient is more alert regarding taking his medications so we has 2-3 loose bowels daily 8. Monitor LFTs, PT and PTT, and albumin level closely 9. GI and DVT prophylaxis Discharge Plan: Home Plan to discharge in: Greater than 2 days - Advance Directives Does patient have a Living Will: No Does patient have a Durable POA for Healthcare: No - Code Status/Comfort Care Code Status Assessed: Yes Code Status: Full Code Critical Care: No Time Spent Managing PTS Care (In Minutes): 45
[2019-09-26 08:19] LABS: Blood Morphology Comment NOT SEEN (NOT SEEN); Platelet Estimate DECR; Urine White Blood Cell Casts OK
[2019-09-26] MEDS: Rifaximin 550 MG Tab PO SCH ×2 (09:14→20:19)
[2019-09-26] MEDS ORDERED: GABAPENTIN 100 MG CAP PO ONE (13:00)
--- NOTE | 2019-09-26 13:40 | P.PN ---
Subjective Date of Service: 09/26/19 Chief Complaint: Hepatic encephalopathy Subjective: Improving (Patient's condition is improving he is somewhat oriented vital signs stable a complains of some discomfort in his legs) Review of Systems General: Weakness Physical Examination - Vital Signs Temperature: 97.7 F Blood Pressure: 103/52 Pulse: 84 Respirations: 20 Pulse Ox (%): 95 - Physical Exam General: Alert, Cooperative, Confused Respiratory: Clear to auscultation bilaterally Cardiovascular: No edema, Normal S1 S2 Gastrointestinal: Normal bowel sounds, Soft and benign Musculoskeletal: No clubbing, No swelling - Studies Laboratory Data (last 24 hrs) 09/25/19 18:33: Lipase Cancelled 09/25/19 18:30: APTT 36.5 09/25/19 18:30: PT 14.8 H, INR 1.27 09/25/19 18:30: WBC 5.7 D, Hgb 15.2, Hct 45.1 D, Plt Count 88 L 09/25/19 18:30: Sodium 139, Potassium 4.2, BUN 20 H, Creatinine 0.94, Glucose 89 , Magnesium 2.2, Total Bilirubin 3.3 H, AST 56 H, ALT 28, Alkaline Phosphatase 175 H, Lipase 126 Assessment & Plan - Problems (Diagnosis) (1) Hepatic encephalopathy Current Visit: Yes Status: Acute Plan: Patient is 64 years of age admitted with altered mental status most likely hepatic encephalopathy all labs reviewed chest x-ray did show some cardiomegaly interstitial changes CT scans of the head neck and chest to not show any significant finding apart from a small aneurysm Mild interstitial pulmonary edema suspected.No pneumothorax or pericardial/ pleural fluid. Blood cultures echocardiogram ordered hold lisinopril. Lactulose not listed on his home medication possible transfer to the floor in the morning No evidence of intra-abdominal visceral injury, free fluid or free air is seen within the above detailed limitations. Liver cirrhosis with splenomegaly noted. Mild infrarenal abdominal aortic aneurysm seen measuring 3.5 cm.
[2019-09-26] MEDS ORDERED: GABAPENTIN 100 MG CAP PO SCH (14:00)
[2019-09-26] MEDS: GABAPENTIN 100 MG CAP PO SCH ×2 (14:10→20:18)
[2019-09-27] MEDS: LACTULOSE 20 GM/30 ML UCUP PO SCH ×2 (03:08→08:51)
[2019-09-27 07:44] VITALS: O2SAT 97
[2019-09-27] MEDS: Rifaximin 550 MG Tab PO SCH (08:50)
[2019-09-27] MEDS: GABAPENTIN 100 MG CAP PO SCH (08:51)
--- NOTE | 2019-09-27 08:55 | RAD REPORT ---
EXAM DESCRIPTION: Torres Single View09/27/2019 8:10 am CLINICAL HISTORY: Chest pain COMPARISON: September 25, 2019 FINDINGS: Mild bilateral pulmonary opacities appear mostly resolved The heart is normal size
[2019-09-27] MEDS ORDERED: GABAPENTIN 100 MG CAP PO SCH (09:00)
[2019-09-27] MEDS ORDERED: LISINOPRIL 20 MG TAB PO SCH (09:00)
[2019-09-27] MEDS ORDERED: HOME MED 1 EA UNK (Lisinopril [Lisinopril] 40 MG) PO SCH (09:00)
--- NOTE | 2019-09-27 10:06 | P.DS ---
Admission Date: 09/25/19 Discharge Date: 09/27/19 Disposition: ROUTINE DISCHARGE Discharge Condition: FAIR Reason for Admission: Hepatic encephalopathy - Problems (1) Hepatic encephalopathy Current Visit: Yes Status: Acute Brief History of Present Illness: Patient is 64 years of age with a history of cirrhosis of the liver admitted with altered mental status not using his lactulose at home Hospital Course: Patient is non compliant with his lactulose at the time of discharge is alert oriented responsive cooperative currently he lives by himself advised him again to use lactulose at least twice a day prescription has been sent to his pharmacy no evidence of sepsis at the time of discharge vital signs all stable he is more alert responsive cooperative oriented x3 ENT normal neck no business is chest clear extremities patient does have lymphedema which is chronic Vital Signs/Physical Exam: Temp Pulse Resp BP Pulse Ox 98.7 F 80 18 102/66 96 09/27/19 04:00 09/27/19 08:50 09/27/19 08:00 09/27/19 08:50 09/27/19 08:00 Laboratory Data at Discharge: WBC 5.4 K/uL (4.3-10.9) 09/26/19 04:55 Hgb 13.7 g/dL (13.6-17.9) 09/26/19 04:55 Hct 39.2 % (39.6-49.0) L 09/26/19 04:55 Plt Count 83 K/uL (152-406) L 09/26/19 04:55 PT 15.3 SECONDS (9.5-12.5) H 09/26/19 04:55 INR 1.31 09/26/19 04:55 APTT 40.2 SECONDS (24.3-36.9) H 09/26/19 04:55 Sodium 143 mmol/L (136-145) 09/26/19 04:55 Potassium 3.8 mmol/L (3.5-5.1) 09/26/19 04:55 BUN 22 mg/dL (7-18) H 09/26/19 04:55 Creatinine 0.95 mg/dL (0.55-1.3) 09/26/19 04:55 Glucose 94 mg/dL (74-106) 09/26/19 04:55 Magnesium 2.2 mg/dL (1.8-2.4) 09/25/19 18:30 Total Bilirubin 3.4 mg/dL (0.2-1.0) H 09/26/19 04:55 AST 50 U/L (15-37) H 09/26/19 04:55 ALT 28 U/L (12-78) 09/26/19 04:55 Alkaline Phosphatase 163 U/L (45-117) H 09/26/19 04:55 Lipase Cancelled 09/25/19 18:33 Home Medications: Furosemide 40 mg PO DAILY 09/26/19 Gabapentin 100 mg PO TID 09/26/19 Lisinopril 40 mg PO DAILY 09/26/19 Lactulose [Cephulac*] 30 ml PO BID 30 Days 09/27/19 New Medications: Lactulose [Cephulac*] 30 ml PO BID 30 Days Patient Discharge Instructions: In to follow up with his primary care doctor Diet: Regular Activity: Ad ivet
[2019-09-27 10:54] VITALS: BP 107/57; TEMP 98.5
--- NOTE | 2019-09-27 12:49 | EKG ---
Test Date: 2019-09-25 Test Time: 18:17:57 Social Media Editor: ARNOLDO MEASUREMENT RESULTS: Intervals: Rate: 94 DE: 164 QRSD: 114 QT: 446 QTc: 557 [place]: P: 53 DE: 164 QRS: 93 T: 44 INTERPRETIVE STATEMENTS: Normal sinus rhythm Right bundle branch block Abnormal ECG Compared to ECG 09/16/2019 15:23:17 No significant changes Electronically Signed On 09-27-19 12:45:32 [employer] by Samir Castellon
[2019-09-27] MEDS ORDERED: GABAPENTIN 100 MG CAP PO ONE (13:00)
--- OUTSIDE RECORDS SUMMARY | 2019-09-28 06:00 | XMS REPORT ---
:1955 Author Organization [facility] Address [address] [place] [address] Care Team Providers Name Role Phone Unavailable Unavailable Unavailable Payers Payer Name Policy Type Policy Number Effective Date Expiration Date Problems This patient has no known problems. Allergies, Adverse Reactions, Alerts Allergy Name Allergy Status Severity Reaction(s) Onset Inactive Treating Comments Type Date Date Clinician Penicillins DA Active [place] 2019-06 00:00:0 0 codeine DA Active [place] 2019-06 00:00:0 0 Penicillins DA Active [place] 2016-02 00:00:0 0 codeine DA Active [place] 2016-02 00:00:0 0 Medications This patient has [...] 64.4 >60 Unit of measure: mL/min/1.73 code=GFR) [id number] Range:Healthy Adults >90 mL/min/1.73 m2 For Chronic Kidney Disease: Stage II Mild Decrease in GFR 60-90 Stage III Moderate Decrease in GFR 30-59 Stage IV Severe Decrease in GFR 15-29 Stage V Kidney Failure <15 CREATININE (test code=CREAT) 1.15 mg/dL 0.55-1.30 CALCIUM (test code=CA) 8.3 mg/dL 8.2-10.1 HGB [id number] 05:53:00 Test Item Value Reference Range Comments HEMOGLOBIN (test code=HGB) 12.4 g/dL 12-16 HEMATOCRIT (test code=HCT) 37.5 % 37-47 COMPREHENSIVE METABOLIC [id number] 12:43:00 Test Item Value Reference Range Comments SODIUM (test code=NA) 137 mmol/L 136-145 POTASSIUM (test code=K) 4.2 mmol/L 3.5-5.1 CHLORIDE (test code=CL) 104.0 mmol/L 98-107 CARBON DIOXIDE (test code=CO2) 24.5 mmol/L 21-32 GLUCOSE (test code=GLU) 115 mg/dL 70-110 BLOOD UREA NITROGEN (test 17 mg/dL 7-18 code=BUN) GLOMERULAR FILTRATION RATE 93.9 >60 Unit of measure: (test code=GFR) mL/min/1.73 [id number] Range:Healthy Adults >90 mL/min/1.73 m2 For Chronic [...] TOTAL 153 U/L 46-116 (test code=ALKP) PROTHROMBIN [id number] 12:35:00 Test Item Value Reference Range Comments [...] Patient is on Heparin Drip? NOTHROMBOPLASTIN TIME [id number] 12:35:00 Test Item Value Reference Range Comments PTT ACTIVATED (test code=APTT) 35.6 secs 24.9-37.0 IS PATIENT ON ANTICOAGULANTS ? NHas Lab been notified if Patient is on Heparin Drip? NOCBC W/AUTO [id number] 12:30:00 Test Item Value Reference Range Comments [...] CELL (test 0 % 0-0 code=NRBC) URINALYSIS [id number] 12:25:00 Test Item Value Reference Range Comments [...] (test code=BACU) RARE /HPF NONE AB HIV [id number] 16:25:00 Test Item Value Reference Range Comments AB HIV 1 (test code=HIV1AB) NONREACTIVE NONREACTIVE Done by [employer] 4th Gen HIV Ag/Ab Combo Screen AB HIV 1 16:24:00 Test Item Value Reference Range Comments AB HIV 1 2 (test NONREACTIVE NONREACTIVE Done by [employer] 121 [employer] 4th code=OWS28EN) Gen HIV Ag/Ab Combo Screen CBC W/AUTO [id number] 14:36:00 Test Item Value Reference Range Comments [...] (test 0 % 0-0 code=NRBC) COMPREHENSIVE METABOLIC [id number] 14:36:00 Test Item Value Reference Range Comments SODIUM (test code=NA) 136 mmol/L 136-145 POTASSIUM (test code=K) 4.3 mmol/L 3.5-5.1 CHLORIDE (test code=CL) 102.0 mmol/L 98-107 CARBON DIOXIDE (test code=CO2) 23.2 mmol/L 21-32 GLUCOSE (test code=GLU) 104 mg/dL 70-110 BLOOD UREA NITROGEN (test 21 mg/dL 7-18 code=BUN) GLOMERULAR FILTRATION RATE 70.8 >60 Unit of measure: (test code=GFR) mL/min/1.73 [id number] Range:Healthy Adults >90 mL/min/1.73 m2 For Chronic [...] TOTAL 158 U/L 46-116 (test code=ALKP) PROTHROMBIN [id number] 14:17:00 Test Item Value Reference Range Comments [...] Patient is on Heparin Drip? NOTHROMBOPLASTIN TIME [id number] 14:17:00 Test Item Value Reference Range Comments PTT ACTIVATED (test code=APTT) 35.6 secs 24.9-37.0 IS PATIENT ON ANTICOAGULANTS ? YLIST ANTICOAGULANT/ANTI PLT MEDICATION : AspirinHas Lab been notified if Patient is on Heparin Drip? NOURINALYSIS [id number] 14:12:00 Test Item Value Reference Range Comments [...]
[2019-09-30 03:54] LABS: HBsAG Nonreactive (Nonreactive)
== END 2019-09-27 10:46 | disposition home or self-care (01) | DRG 442 ==
LOC: ER 18:11 → 3RD-ICU 20:20
PROVIDERS: ADMIT Hospitalist; ATTEND Hospitalist
DX: K72.00 Acute and subacute hepatic failure without coma (principal); E87.2 Acidosis; I11.0 Hypertensive heart disease with heart failure; I50.9 Heart failure, unspecified; F17.210 Nicotine dependence, cigarettes, uncomplicated; K70.30 Alcoholic cirrhosis of liver without ascites; Z96.652 Presence of left artificial knee joint; Z91.14 Patient's other noncompliance with medication regimen
CPT/HCPCS: 36415; 51702; 70450; 71045; 71250; 72125; 80048; 80053; 80074; 80076; 80307; 80320; 80329; 81003; 82103; 82140; 82805; 82947; 83690; 83735; 83880; 84484; 85025; 85610; 85730; 87040; 87086; 87088; 93005; 96374; 96375; 99285; J0696; J1940; J3411; J7030